=== PATIENT | female | born 1975 | race Caucasian/White ===

== ENCOUNTER 2022-02-20 21:57 | Inpatient (IN) | payer OTHER ==
[~2022-02-20] VITALS: Ht 167.6 cm; Wt 54.4 kg
[2022-02-20 21:57] VITALS: BP 106/62
--- NOTE | 2022-02-20 22:10 | NUR ---
Dr. Sim examining patient at [facility].
[2022-02-20] MEDS ORDERED: NACL 0.9% 1,000 ML IV SCH (22:25)
[2022-02-20 22:44] LABS: BASOPHILS % (AUTO) 0.5 % (0.0-2.0); EOSINOPHILS # (AUTO) 0.3 K/uL (0-0.4); EOSINOPHILS % (AUTO) 3.9 % (0.0-4.0); HEMATOCRIT 31.3 % (36-48); HEMOGLOBIN 10.6 g/dL (12.0-16.0); LYMPHOCYTES # (AUTO) 2.7 K/uL (2.5-16.5); LYMPHOCYTES % (AUTO) 38.6 % (20.5-51.1); MEAN CORPUSCULAR HEMOGLOBIN 29 pg (27-31); MEAN CORPUSCULAR HGB CONC 34 g/dL (33-37); MEAN CORPUSCULAR VOLUME 85.3 fL (80-94); MONOCYTES # (AUTO) 0.5 K/uL (0.8-1.0); MONOCYTES % (AUTO) 7.4 % (1.7-9.3); NEUTROPHILS # (AUTO) 3.4 K/uL (1.8-7.7); NEUTROPHILS % (AUTO) 49.6 % (42.2-75.2); PLATELET COUNT (AUTO) 294 K/uL (140-450); RED BLOOD CELL COUNT(AUTO) 3.67 MIL/uL (4.20-5.40); RED CELL DISTRIBUTION WIDTH 14.5 % (11.6-13.7); WHITE BLOOD COUNT (AUTO) 6.9 K/uL (4.8-10.8)
--- NOTE | 2022-02-20 22:46 | NUR ---
PT MELANIE BLS. TAKEN TO BED 3
--- NOTE | 2022-02-20 22:47 | NUR ---
Patient BIB by KIMBERLY from [facility]. C/O vaginal discharge x today. Per reported, patient had vaginal discharge today with bodyache. A/O,X4, quadriplegia, suprapubic cath, neck pain, pain rate 10/23. PMHx: Quadriplegia, Depression, Insomnia, Osteoarthritis, Hypotension, muscle wasting and atroph, anxiety.
[2022-02-20 23:05] LABS: ALBUMIN 3.7 g/dL (3.4-5.0); ANION GAP 11.6 (8-16); CARBON DIOXIDE 25.7 mmol/L (21-32); CREATININE 0.3 mg/dL (0.6-1.3); POTASSIUM 3.3 mmol/L (3.5-5.1); TOTAL BILIRUBIN 0.2 mg/dL (0.0-1.0)
--- NOTE | 2022-02-20 23:15 | NUR ---
COVID-19 and flu swabs collected and sent to lab.
[2022-02-20 23:19] LABS: APPEARANCE,URINE CLOUDY (CLEAR); BILIRUBIN,URINE NEGATIVE (NEGATIVE); BLOOD, URINE 1+ (NEGATIVE); COLOR,URINE YELLOW (YELLOW); LEUKOCYTE ESTERASE ,URINE TRACE (NEGATIVE); NITRITE, URINE POSITIVE (NEGATIVE); UGLUCOSE NEGATIVE (NEGATIVE)
--- NOTE | 2022-02-20 23:20 | NUR ---
Urine sample collected and sent to lab.
[2022-02-20 23:30] LABS: RBC,URINE 0-5 /HPF (0-5)
[2022-02-20] MEDS ORDERED: BISA-218 RC (23:40)
[2022-02-20] MEDS ORDERED: DOCU-299 PO (23:40)
[2022-02-20] MEDS ORDERED: norco PO (23:40)
[2022-02-20] MEDS ORDERED: FERR325E14 PO (23:40)
[2022-02-20] MEDS ORDERED: LACT500C2 PO (23:40)
[2022-02-20] MEDS ORDERED: MIRABULK PO (23:40)
[2022-02-20] MEDS ORDERED: TRAZ-343 PO (23:40)
[2022-02-20] MEDS ORDERED: CRAN450T5 PO (23:40)
[2022-02-20] MEDS ORDERED: FLO.1 PO (23:40)
[2022-02-20] MEDS ORDERED: [UNRECOGNIZED DRUG - CODE] PO (23:40)
[2022-02-20] MEDS ORDERED: TIZA-313 PO (23:40)
[2022-02-20] MEDS ORDERED: ASCO500T95 PO (23:40)
[2022-02-20] MEDS ORDERED: ONDA-188 PO (23:40)
[2022-02-20] MEDS ORDERED: LACT10SO93 PO (23:40)
[2022-02-20] MEDS ORDERED: ACET-2619 PO (23:40)
--- NOTE | 2022-02-20 23:40 | NUR ---
Med- Rec reviewed.
[2022-02-21] MEDS ORDERED: ONDANSETRON 4 MG/2 ML VIAL IVP ONE (00:20)
[2022-02-21] MEDS ORDERED: MORPHINE SULFATE 4 MG/ML SYR IVP ONE (00:20)
--- NOTE | 2022-02-21 00:20 | NUR ---
Pelvic exam performed by Dr. Gamez with SVETLANA Isbell and SVETLANA Solares at bedside for entire examination. Patient tolerated procedure well. Patient assisted to position of comfort after examination.
--- NOTE | 2022-02-21 01:22 | NUR ---
Given apple juice as request.
--- NOTE | 2022-02-21 02:03 | NUR ---
Patient appears to be resting comfortably in bed. Respirations even and unlabored.
--- NOTE | 2022-02-21 03:36 | NUR ---
Dr. Sim examining patient.
[2022-02-21] MEDS ORDERED: NACL 0.9% 1,000 ML IV SCH (03:50)
[2022-02-21] MEDS ORDERED: MEROPENEM 1,000 MG in NACL 0.9% 50 ML IV ONE (03:50)
[2022-02-21] MEDS ORDERED: metroNIDAZOLE 250 MG TAB PO ONE (03:50)
[2022-02-21] MEDS ORDERED: NACL 0.9% 500 ML IV ONE (03:55)
--- NOTE | 2022-02-21 04:06 | NUR ---
Removal supra pubic cath and re-placed new one (18F) by Dr. Sim with sterile technique and SVETLANA Isbell bedside.
[2022-02-21] MEDS ORDERED: metroNIDAZOLE 500 MG TAB ONE (04:13)
[2022-02-21] MEDS ORDERED: MEROPENEM 1,000 MG VIAL IV ONE (04:14)
--- NOTE | 2022-02-21 06:10 | NUR ---
Patient appears to be resting comfortably in bed. Respirations even and unlabored.
--- NOTE | 2022-02-21 08:38 | NUR ---
ASSUMED PATIENT CARE AAOX4 SPEECH CLEAR AND COHERENT, QUADRIPLEGIC, ON POLISHER APPRENTICE, C/O ACHING PAIN WILL CONTINUE TO MONITOR.
[2022-02-21] MEDS ORDERED: MORPHINE SULFATE 2 MG/ML SYR ONE (09:02)
--- NOTE | 2022-02-21 09:06 | NUR ---
PATIENT HAS BEEN SCREENED AND CATEGORIZED LOW NUTRITION RISK. PATIENT WILL BE SEEN WITHIN 7 DAYS OF ADMISSION. 02/28/22 REVIEWED BY ANU OCNST[address] RD
[2022-02-21] MEDS: ENOXAPARIN 40 MG/0.4 ML SYR SUBQ SCH (09:08)
[2022-02-21] MEDS: MORPHINE SULFATE 4 MG/ML SYR IVP PRN ×2 (09:10→13:20)
--- NOTE | 2022-02-21 09:30 | NUR ---
PATIENT IS BEING FED.
--- NOTE | 2022-02-21 10:00 | NUR ---
ASSISTED WITH REPOSITIONING.
--- NOTE | 2022-02-21 11:46 | NUR ---
PATIENT EYE CLOSE IS RESTING/ SLEEPING, ON DYNAMIC ETCHING PROCESSOR, WILL CONTINUE TO MONITOR.
[2022-02-21] MEDS ORDERED: MEROPENEM 500 MG in NACL 0.9% 50 ML IV SCH (13:00)
--- NOTE | 2022-02-21 13:00 | NUR ---
PATIENT ASSISTED WITH LUNCH, TOLERATED WELL.
[2022-02-21] MEDS: MEROPENEM 1,000 MG in NACL 0.9% 50 ML IV SCH ×2 (13:53→21:30)
--- NOTE | 2022-02-21 16:00 | NUR ---
ADMITTING PHYSICIAN AT BEDSIDE.
[2022-02-21] MEDS: HYDROcodone/APAP 5/325 MG 1 TAB TAB PO PRN (16:42)
--- NOTE | 2022-02-21 16:43 | NUR ---
PATIENT C/O HEADACHE 07/23 MEDICATE WITH NORCO WILL CONTINUE TO MON ITOR.
--- NOTE | 2022-02-21 20:12 | NUR ---
PT IN BED RESTING IN BED WITH HOB ELEVATED. PT ON TENNIS INSTRUCTOR. PT IS ADMITED AND IS HOLDING PENDING BED AVAIL. A&OX4. PT IS A QUADRIPLAIC. SUPRAPUBIC CATH IN PLACE. SKIN WARM AND DRY. BED AT LOWEST POSITION LOCKED IN PLACE. BED RAILS UP X2
--- NOTE | 2022-02-21 21:10 | NUR ---
Patient will be admitted to care of DR REID. Admited to TELE. Will go to room 105B. Belongings list completed. Report to ANGIE MOTA.
--- NOTE | 2022-02-21 21:10 | NUR ---
RECEIVED PT FROM ED VIA GURNEY, ADMITTED TO MST UNIT. PT IS AWAKE, ALERT AND VERBALLY RESPONSIVE. PT WITH CHIEF COMPLAINTS OF GENERAL WEAKNESS AND UTI. DIAGNOSIS OF UTI, PARAPLEGIA, ANEMIA. NON AMBULATORY. IV SALINE LOCK IS ON LEFT HAND INTACT AND PATENT. PT IS WITH REGULAR DIET AND ABLE TO SWALLOW FOOD WITH NO PROBLEM. PT HAS SUPRA PUBIC CATHETER. PT IS ON STANDARD ISOLATION.
--- NOTE | 2022-02-21 21:43 | NUR ---
The patient's care was reviewed and supervised by Carlyn Aguilar RN.
[2022-02-21] MEDS: metroNIDAZOLE 250 MG TAB PO SCH (22:00)
[2022-02-22] MEDS: MORPHINE SULFATE 4 MG/ML SYR IVP PRN ×6 (00:09→21:54)
--- NOTE | 2022-02-22 00:09 | NUR ---
PT COMPLAINTS OF GENERAL BODY PAIN 08/22, PAIN MEDICATION MORPHINE ADMINISTERED ORDER. PT TOLERATES WELL.
[2022-02-22] MEDS ORDERED: MEROPENEM 1,000 MG VIAL IV ONE ×2 (00:31→06:02)
[2022-02-22] MEDS: MEROPENEM 1,000 MG in NACL 0.9% 50 ML IV SCH (05:45)
--- NOTE | 2022-02-22 06:10 | NUR ---
PT COMPLAINTS OF GENERAL BODY PAIN 09/22, PAIN MEDICATION MORPHINE ADMINISTERED ORDER.
--- NOTE | 2022-02-22 07:25 | NUR ---
ASSUMED CONTINUITY OF CARE. NO SIGNS AND SYMPTOMS OF ACUTE DISTRESS NOTED. INITIAL ASSESSMENT DONE. FALL PRECAUTION APPLIED. CALL LIGHT WITHIN REACH.
[2022-02-22 07:27] LABS: BASOPHILS % (AUTO) 0.7 % (0.0-2.0); EOSINOPHILS # (AUTO) 0.4 K/uL (0-0.4); EOSINOPHILS % (AUTO) 5.4 % (0.0-4.0); HEMATOCRIT 32.1 % (36-48); HEMOGLOBIN 11.2 g/dL (12.0-16.0); MEAN CORPUSCULAR HEMOGLOBIN 29 pg (27-31); MEAN CORPUSCULAR HGB CONC 35 g/dL (33-37); MEAN CORPUSCULAR VOLUME 83.4 fL (80-94); MONOCYTES # (AUTO) 0.4 K/uL (0.8-1.0); MONOCYTES % (AUTO) 6.6 % (1.7-9.3); NEUTROPHILS # (AUTO) 3.7 K/uL (1.8-7.7); NEUTROPHILS % (AUTO) 56.3 % (42.2-75.2); PLATELET COUNT (AUTO) 291 K/uL (140-450); RED BLOOD CELL COUNT(AUTO) 3.85 MIL/uL (4.20-5.40); RED CELL DISTRIBUTION WIDTH 14.1 % (11.6-13.7); WHITE BLOOD COUNT (AUTO) 6.5 K/uL (4.8-10.8)
[2022-02-22 07:45] LABS: ALBUMIN 3.7 g/dL (3.4-5.0); ANION GAP 11.7 (8-16); CARBON DIOXIDE 29.1 mmol/L (21-32); CREATININE 0.4 mg/dL (0.6-1.3); MAGNESIUM 1.7 mg/dL (1.8-2.4); POTASSIUM 3.8 mmol/L (3.5-5.1); TOTAL BILIRUBIN 0.3 mg/dL (0.0-1.0)
[2022-02-22 08:00] VITALS: BP 127/77
--- NOTE | 2022-02-22 08:00 | NUR ---
Patient's Plan of Care was discussed and reviewed with SORTING MACHINE OPERATOR:
--- NOTE | 2022-02-22 08:20 | NUR ---
PAGED DR. LAMAS REGARDING MAG 1.7. INFORMED CHARGE NURSE -KILLIAN.
[2022-02-22] MEDS ORDERED: MAG SULF 2000 MG/WATER PREMIX 50 ML IV PRN (08:50)
[2022-02-22] MEDS: metroNIDAZOLE 250 MG TAB PO SCH ×2 (09:00→21:32)
[2022-02-22] MEDS: ENOXAPARIN 40 MG/0.4 ML SYR SUBQ SCH (09:04)
[2022-02-22] MEDS: ONDANSETRON 4 MG/2 ML VIAL IVP PRN (11:35)
[2022-02-22 12:00] VITALS: BP 128/73
[2022-02-22] MEDS: MEROPENEM 1,000 MG in NACL 0.9% 100 ML IV SCH ×2 (12:30→21:33)
[2022-02-22 16:00] VITALS: BP 130/71
--- NOTE | 2022-02-22 18:36 | NUR ---
THE LAST NOTE GIVEN MS IV 2MG .5 WITH IN TWO TIMES, [id number]
--- NOTE | 2022-02-22 19:29 | NUR ---
REPORT GIVEN TO ANGIE AN. IN STABLE CONDITION.
--- NOTE | 2022-02-22 21:30 | NUR ---
PT COMPLAINTS OF GENERAL BODY PAIN 09/22, PAIN MEDICATION MORPHINE ADMINISTERED ORDER.
--- NOTE | 2022-02-22 21:54 | NUR ---
CORRECTION OF TIME FOR PAIN MEDICATION ADMINISTRATION. MORPHINE 2 MG ADMINISTERED AT 2154 INSTEAD.
[2022-02-22 22:43] VITALS: BP 114/71
--- NOTE | 2022-02-22 22:54 | NUR ---
REASSESSMENT FOR PAIN MEDICATION MORPHINE, PT IS ASLEEP WELL. NO SOB OR DISTRESS.
[2022-02-23] MEDS: MORPHINE SULFATE 4 MG/ML SYR IVP PRN ×3 (02:06→16:47)
--- NOTE | 2022-02-23 02:08 | NUR ---
PT COMPLAINTS OF GENERAL BODY PAIN 09/22. PAIN MEDICATION MORPHINE ADMINISTERED ORDER.
--- NOTE | 2022-02-23 03:08 | NUR ---
PT IS SLEEPING. NO FACIAL GRIMACING. NO SOB OR DISTRESS.
[2022-02-23] MEDS: MEROPENEM 1,000 MG in NACL 0.9% 100 ML IV SCH ×2 (05:44→12:19)
[2022-02-23 06:43] VITALS: BP 115/64
--- NOTE | 2022-02-23 07:10 | NUR ---
ASSUMED CONTINUITY OF CARE. IVF INFUSING WELL. INITIAL ASSESSMENT DONE. FALL PRECAUTION APPLIED. EXPLAINED PAIN MANAGEMENT. CALL LIGHT WITHIN REACH.
[2022-02-23 07:20] LABS: ANION GAP 10.1 (8-16); CREATININE 0.4 mg/dL (0.6-1.3); MAGNESIUM 2.2 mg/dL (1.8-2.4); POTASSIUM 4.1 mmol/L (3.5-5.1); TOTAL BILIRUBIN 0.3 mg/dL (0.0-1.0)
[2022-02-23 07:34] LABS: BASOPHILS % (AUTO) 0.6 % (0.0-2.0); EOSINOPHILS # (AUTO) 0.3 K/uL (0-0.4); EOSINOPHILS % (AUTO) 4.2 % (0.0-4.0); HEMATOCRIT 35.9 % (36-48); HEMOGLOBIN 12.2 g/dL (12.0-16.0); LYMPHOCYTES # (AUTO) 2.4 K/uL (2.5-16.5); LYMPHOCYTES % (AUTO) 36.1 % (20.5-51.1); MEAN CORPUSCULAR HEMOGLOBIN 29 pg (27-31); MEAN CORPUSCULAR HGB CONC 34 g/dL (33-37); MEAN CORPUSCULAR VOLUME 84.4 fL (80-94); MONOCYTES # (AUTO) 0.4 K/uL (0.8-1.0); NEUTROPHILS # (AUTO) 3.5 K/uL (1.8-7.7); NEUTROPHILS % (AUTO) 53.1 % (42.2-75.2); PLATELET COUNT (AUTO) 301 K/uL (140-450); RED BLOOD CELL COUNT(AUTO) 4.26 MIL/uL (4.20-5.40); RED CELL DISTRIBUTION WIDTH 14.4 % (11.6-13.7); WHITE BLOOD COUNT (AUTO) 6.5 K/uL (4.8-10.8)
[2022-02-23 08:00] VITALS: BP_SYST 132; BP_SYST 134; BP_DIAS 80
--- NOTE | 2022-02-23 08:49 | NUR ---
DC PLANNING LATE ENTRY PT SEEN AT 1430 ON 02/22/22 YAMIL MET WITH PT AT BEDSIDE TO COMPLETE ASSESSMENT. PT ALERT AND ORIENTED AND ABLE TO PROVIDE ALL HER OWN INFORMATION. PT REPORTS BEING IN HALFWAY CARE WITH [facility], ADMISSION DATE; . PT IDENTIFIED NIMCO WHITEHEAD, DAUGHTER, AND ALLISON GARCIA, MOM, EMERGENCY CONTACTS. PT UNSURE IF SHE HAS AD IN PLACE AND ACCEPTED AD OFFERED BY YAMIL. PT REPORTS BEING FOLLOWED BY DR. DOUGLAS AT FACILITY. PT REPORTS MEDICATION COMPLIANCE AND REPORTS MEDICATION IS ADMINISTERED BY FACILITY, WHEN NEEDED. PT REPORTS BEING TOTAL CARE AT FACILITY AND REPORTS UTILIZING WC, TOLERATED. PT REQUIRES ASSISTANCE WITH ALL ADL'S WHICH [facility] STAFF AIDS WITH. PT DENIES MH HX. 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 PT REPORTS FAMILY IS ACTIVE IN CARE. PT REPORTS DC PLAN IS TO RETURN TO [facility], WHEN MEDICALLY STABLE. YAMIL INQUIRED ON RESOURCES NEEDED, PT DECLINED. Addendum: 02/23/22 at 0851 by Martha JARAMILLO Amended: Links added.
[2022-02-23] MEDS: metroNIDAZOLE 250 MG TAB PO SCH ×2 (09:00→20:15)
[2022-02-23] MEDS: ENOXAPARIN 40 MG/0.4 ML SYR SUBQ SCH (09:01)
[2022-02-23 16:00] VITALS: BP 116/74
[2022-02-23] MEDS ORDERED: AMIKACIN PER PHARMACY MC PRN (17:25)
[2022-02-23] MEDS ORDERED: DEXTROSE 5% IV SCH (18:00)
[2022-02-23] MEDS ORDERED: AMIKACIN IV SCH (18:00)
--- NOTE | 2022-02-23 19:15 | NUR ---
ENDORSED PATIENT TO NIGHT NURSE TRUDY FOR CONTINUITY OF CARE. ENDORSED 1ST DOSE OF AMIKACIN IV. IN STABLE CONDITION.
--- NOTE | 2022-02-23 19:16 | NUR ---
RECEIVED PT FROM MORNING SHIFT NURSE. PT IS AOX4, AND BEDBOUND. PT IS ON ROOM AIR AND ON REGULAR DIET. PT HAS IV ON LEFT HAND GAUGE 24 RUNNING WITH NS AT TKO. PT HAS SUPRAPUBIC CATHETER. PT SKIN IS INTACT. NO COMPLAIN OF PAIN AT THIS TIME. NO S/S OF RESPIRATORY DISTRESS NOTED. ALL SAFETY MEASURES IMPLEMENTED. BED IN LOW POSITION, BED WHEELS ON LOCKED AND CALL LIGHT WITHIN REACH.
--- NOTE | 2022-02-23 20:15 | NUR ---
SCHEDULED AND PRESCRIBED MEDICATION WAS GIVEN TO PT PER MD ORDER. ALL SAFETY MEASURES IMPLEMENTED. BED IN LOW POSITION, BED WHEELS ON LOCKED AND CALL LIGHT WITHIN REACH.
--- NOTE | 2022-02-23 22:00 | NUR ---
PT IS WATCHING MOVIE TO HER PHONE. NO COMPLAIN OF PAIN. NO S/S OF RESPIRATORY DISTRESS NOTED. ALL SAFETY MEASURES IMPLEMENTED. BED IN LOW POSITION, BED WHEELS ON LOCK AND CALL LIGHT WITHIN REACH.
[2022-02-23 22:43] VITALS: BP 102/61
--- NOTE | 2022-02-24 00:24 | NUR ---
NOTIFIED DR. HAGAN REGARDING THE PT'S AMIKACIN RANDOM LEVEL DOESN'T RUN TO [facility] FOR INCURABLES BUT THE LAB WILL SEND IT TO [facility].
[2022-02-24] MEDS: ONDANSETRON 4 MG/2 ML VIAL IVP PRN (03:13)
[2022-02-24] MEDS: MORPHINE SULFATE 4 MG/ML SYR IVP PRN ×2 (03:13→09:58)
--- NOTE | 2022-02-24 03:13 | NUR ---
PRN PAIN MEDICATION AND ZOFRAN WAS GIVEN TO PT DUE TO GEN. PAIN WITH PAIN SCALE OF 6/10. ALL SAFETY MEASURES IMPLEMENTED. BED IN LOW POSITION, BED WHEELS ON LOCKED AND CALL LIGHT WITHIN REACH.
[2022-02-24 03:24] LABS: BASOPHILS % (AUTO) 0.7 % (0.0-2.0); EOSINOPHILS # (AUTO) 0.3 K/uL (0-0.4); EOSINOPHILS % (AUTO) 4.9 % (0.0-4.0); HEMATOCRIT 33.4 % (36-48); HEMOGLOBIN 11.7 g/dL (12.0-16.0); LYMPHOCYTES # (AUTO) 2.4 K/uL (2.5-16.5); LYMPHOCYTES % (AUTO) 38.4 % (20.5-51.1); MEAN CORPUSCULAR HEMOGLOBIN 29 pg (27-31); MEAN CORPUSCULAR HGB CONC 35 g/dL (33-37); MEAN CORPUSCULAR VOLUME 83.7 fL (80-94); MONOCYTES # (AUTO) 0.5 K/uL (0.8-1.0); MONOCYTES % (AUTO) 7.2 % (1.7-9.3); NEUTROPHILS # (AUTO) 3.1 K/uL (1.8-7.7); NEUTROPHILS % (AUTO) 48.8 % (42.2-75.2); PLATELET COUNT (AUTO) 291 K/uL (140-450); RED CELL DISTRIBUTION WIDTH 14.6 % (11.6-13.7); WHITE BLOOD COUNT (AUTO) 6.4 K/uL (4.8-10.8)
[2022-02-24 03:32] LABS: ALBUMIN 3.8 g/dL (3.4-5.0); ANION GAP 9.7 (8-16); CARBON DIOXIDE 31.6 mmol/L (21-32); CREATININE 0.4 mg/dL (0.6-1.3); MAGNESIUM 1.8 mg/dL (1.8-2.4); POTASSIUM 4.3 mmol/L (3.5-5.1); TOTAL BILIRUBIN 0.4 mg/dL (0.0-1.0)
[2022-02-24 06:46] VITALS: BP 116/78
--- NOTE | 2022-02-24 07:29 | NUR ---
PT IS STABLE. ENDORSED PT TO MORNING SHIFT NURSE FOR CONTINUITY OF CARE.
[2022-02-24 08:00] VITALS: BP 104/64
[2022-02-24] MEDS: metroNIDAZOLE 250 MG TAB PO SCH ×2 (08:56→21:00)
[2022-02-24] MEDS: ENOXAPARIN 40 MG/0.4 ML SYR SUBQ SCH (08:56)
[2022-02-24] MEDS: MORPHINE SULFATE 2 MG/ML SYR IVP PRN (14:36)
[2022-02-24] MEDS: AMIKACIN 700 MG in DEXTROSE 5% 100 ML IV SCH (15:31)
[2022-02-24 16:00] VITALS: BP 122/50
--- NOTE | 2022-02-24 18:45 | NUR ---
ALL NEEDS HAVE BEEN MET THROUGHOUT THE SHIFT. ALL SAFETY MEASURES IN PLACE. CALL LIGHT WITHIN REACH. WILL CONTINUE TO MONITOR.
--- NOTE | 2022-02-24 19:30 | NUR ---
HAND-OFF REPORT RECEIVED FROM SHAKIRA MOTA FOR CONTINUITY OF CARE OF PT. ENDORSED TO CALL MD FOR MEDS FOR BOWELS. NO BM IN 6 DAYS. PT RECEIVED RESTING QUIETLY IN BED.
[2022-02-24 20:00] VITALS: BP 74/49
[2022-02-24 20:15] VITALS: BP 128/85
--- NOTE | 2022-02-24 20:45 | NUR ---
HYPOTENSIVE 76/48. HR 92. PT SYMPTOMATIC. "I FEEL BAD". NS OPENED WIDE. 02 2L/NC PLACED.
--- NOTE | 2022-02-24 20:50 | NUR ---
VS 117/76 HR 68, I'M FEELING BETTER. 128/85 HR 62. I FEEL BETTER.
--- NOTE | 2022-02-24 21:15 | NUR ---
LUIS MALONEY MD NOTIFIED PT STATES TAKE MIDODRINE AT FACILITY BUT MEDICINE NOT FOUND ON MED RECONCILIATION FORM. ORDER RECEIVED FOR MIDODRINE 10 MG TID.
[2022-02-24] MEDS ORDERED: MIDODRINE 5 MG TAB PO SCH (21:16)
[2022-02-25] VITALS (11 sets, daily range): BP systolic 104–177; BP diastolic 59–102
--- NOTE | 2022-02-25 | NUR ---
RESTING WELL. NO C/O.
--- NOTE | 2022-02-25 | NUR ---
MIDODRINE HELD. B/P 129/101 HR 98 SAT 98% ON 2L/NC.
--- NOTE | 2022-02-25 04:00 | NUR ---
PT CONTINUES RESTING WELL.
[2022-02-25 06:58] LABS: BASOPHILS # (AUTO) 0.1 K/uL (0.00-0.22); BASOPHILS % (AUTO) 0.9 % (0.0-2.0); EOSINOPHILS # (AUTO) 0.2 K/uL (0-0.4); EOSINOPHILS % (AUTO) 2.9 % (0.0-4.0); HEMATOCRIT 36.5 % (36-48); HEMOGLOBIN 12.4 g/dL (12.0-16.0); LYMPHOCYTES # (AUTO) 2.1 K/uL (2.5-16.5); LYMPHOCYTES % (AUTO) 25.8 % (20.5-51.1); MEAN CORPUSCULAR HEMOGLOBIN 29 pg (27-31); MEAN CORPUSCULAR HGB CONC 34 g/dL (33-37); MONOCYTES # (AUTO) 0.3 K/uL (0.8-1.0); MONOCYTES % (AUTO) 3.9 % (1.7-9.3); NEUTROPHILS # (AUTO) 5.3 K/uL (1.8-7.7); NEUTROPHILS % (AUTO) 66.5 % (42.2-75.2); PLATELET COUNT (AUTO) 327 K/uL (140-450); RED BLOOD CELL COUNT(AUTO) 4.35 MIL/uL (4.20-5.40); RED CELL DISTRIBUTION WIDTH 14.2 % (11.6-13.7)
[2022-02-25] MEDS ORDERED: MIDODRINE 5 MG TAB PO SCH (07:00)
[2022-02-25] MEDS: HYDROcodone/APAP 5/325 MG 1 TAB TAB PO PRN ×2 (07:15→07:36)
[2022-02-25 07:28] LABS: ALBUMIN 4.1 g/dL (3.4-5.0); ANION GAP 13.5 (8-16); CARBON DIOXIDE 28.7 mmol/L (21-32); CREATININE 0.4 mg/dL (0.6-1.3); MAGNESIUM 1.8 mg/dL (1.8-2.4); POTASSIUM 4.2 mmol/L (3.5-5.1); TOTAL BILIRUBIN 0.4 mg/dL (0.0-1.0)
--- NOTE | 2022-02-25 07:30 | NUR ---
PT HAS BEEN ENDORSED BY DIMENSIONAL ENGINEER NURSE, ALL SAFETY MEASURES IN PLACE. PT ALERT AND ORIENTED, ABLE TO COMMUNICATE. ON 2L NC CHEST RISING AND FALLING EVEN AND UNLABORED. ALL DIMENSIONAL ENGINEER EVENTS ENDORSED. REPORT OF DECREASED BLOOD PRESSURE DURING DIMENSIONAL ENGINEER, NEW ORDER FOR MIDODRINE TID, 0700 DOSE ADMINISTERED BY DIMENSIONAL ENGINEER. WILL CONTINUE TO MONITOR.
[2022-02-25] MEDS: MORPHINE SULFATE 2 MG/ML SYR IVP PRN ×4 (07:33→22:36)
--- NOTE | 2022-02-25 07:33 | NUR ---
PT REQUESTING MORPHINE INSTEAD OF NORCO FOR "BODY ACHE AND NECK PAIN". MORPHINE 2MG IV PUSH GIVEN. REPORTED TO A.M. NURSE MORPHINE GIVEN AND NORCO REFUSED AND RETURNED TO [facility]. PAIN LEVEL 7/10. RELINQUISHED CARE OF PT AT THIS TIME.
--- NOTE | 2022-02-25 07:33 | NUR ---
HAND-OFF REPORT TO RETURNING NURSE SHAKIRA MOTA. UPDATED CHANGES. HYPOTENSIVE EPISODE X1. RESPONDED WELL TO BOLUS IV FLUIDS AND O2 PER 2L/NC. THIS A.M VOICED COMPLAINTS BODY ACHE AND NECK PAIN. REFUSED NORCO DESIRED MORPHINE 2 MG INSTEAD.
--- NOTE | 2022-02-25 08:57 | NUR ---
PT. WITH LOW RG SCALE AT MODERATE TO HIGH RISK, CONTINUE TO FOLLOW PRESSURE INJURY PREVENTION INTERVENTIONS. -POSITIONING: TURN AND REPOSITION PATIENT Q 2H OR SOONER USE PILLOWS TO KEEP BONY PROMINENCES FROM DIRECT CONTACT WITH SURFACES USE REPOSITIONING WEDGES TO PROVIDE 30-DEGREE ANGLE FOR SIDE LYING POSITIONS OFFLOADING OR FOAM DRESSING TO ALL TUBING TO PREVENT MEDICAL DEVICES RELATED PRESSURE INJURY -RE-EVALUATING AND MANAGING INCONTINENCE MONITOR SKIN CONDITION DURING POSITION CHANGE DO NOT MASSAGE REDNESS, BONY PROMINENCES FREQUENT RENAE-CARE AND PROVIDE BARRIER CREAMS PRN IF SOILING MOISTURE CONTROL BY OFFER BED MCMULLEN/URINAL /ABSORBENT PAD TO WICK AND HOLD MOISTURE KEEP SKIN DRY AND PROTECT FROM FRICTION -MANAGE FRICTION/SHEAR/MOBILITY KEEP HOB AT THE LOWEST LEVEL OF ELEVATION NO MORE THAN 30 DEGREE UNLESS OTHERWISE CONTRAINDICATED USE LIFT SHEET OR TRANSFER DEVICE TO MOVE PATIENT AND PREVENT LATERAL SHEER. PROTECT HEELS, ELBOWS BONY PROMINENCES WITH SKIN BERRIES OR FOAM DRESSING IF EXPOSED TO FRICTION OFFLOAD BILATERAL HEELS BY PLACING PILLOWS UNDER CALVES AT ALL TIMES, UNLESS OTHERWISE CONTRAINDICATED -PRESSURE REDISTRIBUTION SURFACE THERAPY FOREST ISOFLEX MATTRESS -NUTRITION: PLEASE FOLLOW RD RECOMMENDATIONS AND OFFER NUTRITION SUPPLEMENTS IF ORDERED. PLEASE CONTACT WOUND CARE NURSE FOR ANY QUESTION AND CHANGE OF WOUND CONDITION.
[2022-02-25] MEDS: metroNIDAZOLE 250 MG TAB PO SCH ×2 (09:00→21:37)
[2022-02-25] MEDS ORDERED: NACL 0.9% 500 ML IV SCH (09:10)
[2022-02-25] MEDS: ENOXAPARIN 40 MG/0.4 ML SYR SUBQ SCH (09:23)
[2022-02-25] MEDS ORDERED: ALBUMIN HUMAN 25% 100 ML IV SCH (09:30)
[2022-02-25] MEDS ORDERED: SODIUM PHOSPHATE 118 ML ENEM RC SCH (10:00)
--- NOTE | 2022-02-25 10:00 | NUR ---
AT ROUGHLY 0745, RAPID RESPONSE CALLED FOR 58/36 BLOOD PRESSURE. CONNECT TO TELE. 250 BOLUS ADMINISTERED AND PLACED IN [place]. AT ROUGHLY 0832, BLOOD PRESSURE INCREASED TO 118/71. AT 0924, A SEIZURE WAS WITNESSED FOR 45 SECONDS. PT REMAINED INJURY FREE. REASSESSMENT OF VITAL SIGNS 101/81 HEART RATE 109 O2 SAT AT 98%. ORDERED ALBUMIN WAS STARTED PER MD ORDER. PT UNABLE TO RESPOND TO QUESTIONS. MD ORDERED ICU TRANSFER. AT ROUGHLY 0945, REPORT WAS GIVEN. PATIENT ABLE TO RESPOND AND ANSWER QUESTIONS AT THIS TIME.
--- NOTE | 2022-02-25 10:13 | NUR ---
PT HAS BEEN TRANSFERRED TO ICU BED 5, 3L NC, SUPRAPUBIC CATH. ALL EVENTS ENDORSED, ALL QUESTIONS ANSWERED. ALLISON MOTHER CALLED WITH AN UPDATE AND ROOM NUMBER. ALL QUESTIONS ANSWERED.
--- NOTE | 2022-02-25 10:15 | NUR ---
RECEIVED PT FROM TELEMETRY, A/OX4, ALERT AND ABLE TO MAKE NEEDS KNOWN. FOLLOWS COMMANDS. 2L NC. SR ON MONITOR, 24G IV TO L HAND INFUSING ALBUMIN AT 50 ML/HR. SUPRAPUBIC CATHETER IN PLACE. NOTABLE WEAKNESS TO BLE. ABLE TO MOVE UPPER EXTREMITIES WITHOUT GOOD USE OF HANDS. CONTACT PRECAUTION. CALL LIGHT WITHIN REACH. BED LOCKED AND IN LOWEST POSITION.
--- NOTE | 2022-02-25 12:05 | NUR ---
PICC NURSE AT BEDSIDE, CONFIRMED PICC PLACEMENT WITH CXR, OK TO USE PICC.
[2022-02-25] MEDS: HYDROCORTISONE NA SUCC 100 MG/2 ML VIAL IV SCH ×2 (12:34→21:36)
[2022-02-25] MEDS: ONDANSETRON 4 MG/2 ML VIAL IVP PRN ×2 (12:35→17:58)
[2022-02-25] MEDS: MIDODRINE 5 MG TAB PO SCH ×2 (12:35→19:07)
[2022-02-25] MEDS: ACETAMINOPHEN 325 MG TAB PO PRN (14:12)
[2022-02-25] MEDS: AMIKACIN 700 MG in DEXTROSE 5% 100 ML IV SCH (15:22)
--- NOTE | 2022-02-25 16:53 | NUR ---
SEEN AND EXAMINED BY DR. LAMAS AT BEDSIDE.
--- NOTE | 2022-02-25 18:08 | NUR ---
MOTHER AT BEDSIDE.
--- NOTE | 2022-02-25 19:14 | NUR ---
ENDORSED BEDSIDE REPORT TO JONNY, FIRE LIEUTENANT DISPATCH SUPERVISOR, FOR CONTINUITY OF CARE.
[2022-02-25] MEDS ORDERED: metroNIDAZOLE 500 MG TAB ONE (21:25)
[2022-02-25] MEDS: LACTULOSE 20 GM/30 ML UDC PO SCH (21:36)
[2022-02-26] VITALS (18 sets, daily range): BP systolic 73–182; BP diastolic 49–106
[2022-02-26] MEDS ORDERED: LORazepam 2 MG/ML VIAL ONE (04:31)
--- NOTE | 2022-02-26 04:54 | NUR ---
0437 CALLED TO DO A STAT EKG. RESULTS GIVEN TO SVETLANA
[2022-02-26] MEDS ORDERED: NACL 0.9% 1,000 ML IV SCH (05:35)
[2022-02-26] MEDS ORDERED: levETIRAcetam 100 MG/ML VIAL IV ONE (05:36)
[2022-02-26] MEDS: levETIRAcetam 1,000 MG in NACL 0.9% 100 ML IV SCH ×2 (05:44→20:30)
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
[2022-02-26] MEDS ORDERED: metroNIDAZOLE 500 MG/NS PREMIX 100 ML IV ONE (05:54)
[2022-02-26 06:07] LABS: BASOPHILS % (AUTO) 0.4 % (0.0-2.0); EOSINOPHILS % (AUTO) 0.2 % (0.0-4.0); HEMATOCRIT 31.6 % (36-48); HEMOGLOBIN 10.7 g/dL (12.0-16.0); LYMPHOCYTES # (AUTO) 1.6 K/uL (2.5-16.5); MEAN CORPUSCULAR HEMOGLOBIN 29 pg (27-31); MEAN CORPUSCULAR HGB CONC 34 g/dL (33-37); MEAN CORPUSCULAR VOLUME 84.3 fL (80-94); MONOCYTES # (AUTO) 0.2 K/uL (0.8-1.0); MONOCYTES % (AUTO) 3.1 % (1.7-9.3); NEUTROPHILS # (AUTO) 4.4 K/uL (1.8-7.7); NEUTROPHILS % (AUTO) 71.3 % (42.2-75.2); PLATELET COUNT (AUTO) 313 K/uL (140-450); RED BLOOD CELL COUNT(AUTO) 3.75 MIL/uL (4.20-5.40); WHITE BLOOD COUNT (AUTO) 6.2 K/uL (4.8-10.8)
[2022-02-26 06:55] LABS: ALBUMIN 4.1 g/dL (3.4-5.0); ANION GAP 12.6 (8-16); CARBON DIOXIDE 28.9 mmol/L (21-32); CREATININE 0.3 mg/dL (0.6-1.3); MAGNESIUM 1.8 mg/dL (1.8-2.4); POTASSIUM 3.5 mmol/L (3.5-5.1); TOTAL BILIRUBIN 0.3 mg/dL (0.0-1.0)
[2022-02-26] MEDS: MIDODRINE 5 MG TAB PO SCH ×2 (07:19→13:39)
[2022-02-26] MEDS: ENOXAPARIN 40 MG/0.4 ML SYR SUBQ SCH (09:10)
[2022-02-26] MEDS: LACTULOSE 20 GM/30 ML UDC PO SCH ×2 (09:12→20:29)
[2022-02-26] MEDS: HYDROCORTISONE NA SUCC 100 MG/2 ML VIAL IV SCH (09:12)
[2022-02-26] MEDS: MORPHINE SULFATE 2 MG/ML SYR IVP PRN ×2 (09:37→16:19)
[2022-02-26] MEDS: ONDANSETRON 4 MG/2 ML VIAL IVP PRN ×3 (09:38→18:10)
--- NOTE | 2022-02-26 10:01 | NUR ---
Assumed care of patient. Assessment completed. C/O pain in neck 09/22. Morphine 2mg IV given. C/O Nausea, Zofran 4mg IVP given.Vitals stable at this time. 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 On Kepra scheduled. Repositioned. Perineal care given. C/O Anxiety. Dr. Eller notified, waiting for orders.
--- NOTE | 2022-02-26 10:30 | NUR ---
Ativan 1mg IVP given for anxiety.
[2022-02-26] MEDS: LORazepam 2 MG/ML VIAL IVP PRN ×2 (10:31→20:52)
[2022-02-26] MEDS ORDERED: LORazepam 2 MG/ML VIAL IM/IVP PRN (11:35)
[2022-02-26] MEDS ORDERED: bisacodyL 10 MG SUPP RC PRN (11:35)
--- NOTE | 2022-02-26 12:03 | NUR ---
LOC ASLEEP NO DISTRESS NOTED PATIENT UNABLE TO PARTICIPATE WITH THE INCENTIVE SPIROMETRY THERAPY HEALTH MANAGER TO ATTEMPT AT A LATER TIME WHEN PATIENT AWAKENS
--- NOTE | 2022-02-26 12:30 | NUR ---
CT Head completed as ordered.
[2022-02-26] MEDS ORDERED: POTASSIUM CHLORIDE 10 MEQ TABER PO SCH (13:00)
[2022-02-26] MEDS: AMIKACIN 700 MG in DEXTROSE 5% 100 ML IV SCH (15:20)
[2022-02-26] MEDS ORDERED: hydrALAZINE 20 MG/ML VIAL IVP PRN ×2 (17:45→18:10)
[2022-02-26] MEDS: ACETAMINOPHEN 325 MG TAB PO PRN (18:48)
--- NOTE | 2022-02-26 19:30 | NUR ---
TRANSFER OF CARE FROM DAY SHIFT, REPORT RECEIVED FROM SVETLANA MONZON. PATIENT RECEIVED IN BED, PATIENT IS ASLEEP, BUT EASILY AROUSABLE AND DOES NOT APPEAR TO BE IN DISTRESS. PATIENT IS ON ROOM AIR. PATIENT HAS THE FOLLOWING MEDICATIONS CURRENTLY INFUSING: NORMAL SALINE AT 5 ML/HR CURRENT VITALS AT START OF SHIFT: TEMP=97.3F, HR=64, O2 SAT=96%, AS=055/75, R=35. HAS SUPRAPUBIC CATHETER IN PLACE, WILL CONTINUE TO MONITOR PATIENT
[2022-02-26] MEDS: traZODone 50 MG TAB PO SCH (20:29)
[2022-02-26] MEDS: DOCUSATE SODIUM 100 MG GELCAP PO SCH (20:29)
[2022-02-26] MEDS: FAMOTIDINE 20 MG/2 ML VIAL IV SCH (20:30)
[2022-02-26] MEDS ORDERED: HYDROCORTISONE NA SUCC 100 MG/2 ML VIAL IV SCH (21:00)
[2022-02-26] MEDS ORDERED: tiZANidine 4 MG TAB PO PRN (21:00)
--- NOTE | 2022-02-26 23:30 | NUR ---
PATIENT NOTEED WITH BP 73/38, ASSESSED PATIENT WHO STATES THAT SHE OFTEN BECOMES HYPOTENSIVE WHILE SLEEPING. ADJUSTED BP CUFF AND NEW READING WAS 71/63. CALL PLACED TO FLOORING INSTALLER; SPOKE WITH DR. REA WHO PROVIDED ORDERS FOR MIDODRINE 5MG Q6H WITH ONE DOSE NOW. PATIENT TO CONTINUE FLORINEF. CHECK BP IN 1 HOUR, IF BP DOES NOT RISE, START LEVOPHED IV PER PROTOCOL; WILL CONTINUE TO MONITOR PATIENT
[2022-02-27] VITALS (12 sets, daily range): BP systolic 83–154; BP diastolic 50–89
--- NOTE | 2022-02-27 | NUR ---
ADMINISTERED MIDODRINE PER MD ORDERS, CURRENT BP = 83/50. WILL RECHECK IN 1 HR
[2022-02-27] MEDS: MIDODRINE 5 MG TAB PO SCH ×6 (00:01→23:59)
[2022-02-27] MEDS ORDERED: NOREPINEPHRINE 8 MG in DEXTROSE 5% 250 ML IV PRN (00:45)
--- NOTE | 2022-02-27 01:10 | NUR ---
FOLLOW UP ON BLOOD PRESSURE, CURRENT VALUE = 100/60. WILL CONTINUE TO MONITOR PATIENT AND START LEVOPHED IF BP DROPS BACK INTO THE 80'S
[2022-02-27] MEDS: MORPHINE SULFATE 2 MG/ML SYR IVP PRN ×3 (03:11→17:01)
[2022-02-27] MEDS: LORazepam 2 MG/ML VIAL IVP PRN ×4 (03:54→23:59)
--- NOTE | 2022-02-27 04:15 | NUR ---
PATIENT DECLINED AM CARE
[2022-02-27] MEDS ORDERED: NOREPINEPHRINE 4 MG/4 ML VIAL IV ONE (05:33)
--- NOTE | 2022-02-27 05:46 | NUR ---
PATIENT NOTED WITH LOW BP; 83/53. STARTED LEVOPHED PER MD ORDERS
[2022-02-27 06:09] LABS: BASOPHILS % (AUTO) 0.6 % (0.0-2.0); EOSINOPHILS # (AUTO) 0.1 K/uL (0-0.4); HEMATOCRIT 29.6 % (36-48); HEMOGLOBIN 10.3 g/dL (12.0-16.0); LYMPHOCYTES # (AUTO) 3.6 K/uL (2.5-16.5); LYMPHOCYTES % (AUTO) 45.3 % (20.5-51.1); MEAN CORPUSCULAR HEMOGLOBIN 29 pg (27-31); MEAN CORPUSCULAR HGB CONC 35 g/dL (33-37); MEAN CORPUSCULAR VOLUME 84.2 fL (80-94); MONOCYTES # (AUTO) 0.6 K/uL (0.8-1.0); MONOCYTES % (AUTO) 7.8 % (1.7-9.3); NEUTROPHILS # (AUTO) 3.6 K/uL (1.8-7.7); NEUTROPHILS % (AUTO) 45.3 % (42.2-75.2); PLATELET COUNT (AUTO) 299 K/uL (140-450); RED BLOOD CELL COUNT(AUTO) 3.52 MIL/uL (4.20-5.40); RED CELL DISTRIBUTION WIDTH 14.3 % (11.6-13.7); WHITE BLOOD COUNT (AUTO) 7.9 K/uL (4.8-10.8)
[2022-02-27 06:31] LABS: ANION GAP 12.3 (8-16); CARBON DIOXIDE 27.9 mmol/L (21-32); CREATININE 0.4 mg/dL (0.6-1.3); POTASSIUM 3.2 mmol/L (3.5-5.1)
[2022-02-27 06:37] LABS: MAGNESIUM 1.8 mg/dL (1.8-2.4); PHOSPHORUS 2.4 mg/dL (2.5-4.9)
--- NOTE | 2022-02-27 07:29 | NUR ---
TRANSFER OF CARE TO DAY SHIFT; REPORT ENDORSED TO SVETLANA BOWSER
--- NOTE | 2022-02-27 08:00 | NUR ---
rECEIVED PT ON BED, AAOX4, DENIES PAIN/DISCOMFORT AT THIS TIME; NOT IN DISTRESS. ASSESSMENT DONE, PARAPLEGIA NOTED. REPOSITIONED TO SIDE, SUPPORTED WITH PILLOWS. MADE WARM AND COMFORTABLE. CALL LIGHT WITHIN REACH. LEVOPHED DRIP TITRATED DOWN TO 1 MCG. CONT TO MONITOR.
[2022-02-27] MEDS: ONDANSETRON 4 MG/2 ML VIAL IVP PRN ×2 (08:41→17:09)
[2022-02-27] MEDS: LACTULOSE 20 GM/30 ML UDC PO SCH ×2 (08:42→20:35)
[2022-02-27] MEDS: FAMOTIDINE 20 MG/2 ML VIAL IV SCH ×2 (08:43→20:38)
[2022-02-27] MEDS: DOCUSATE SODIUM 100 MG GELCAP PO SCH ×2 (08:44→20:38)
[2022-02-27] MEDS: LACTOBACILLUS RHAMNOSUS GG 1 EACH CAP PO SCH (08:55)
[2022-02-27] MEDS: FERROUS SULFATE 325 MG TABEC PO SCH (08:55)
[2022-02-27] MEDS: ENOXAPARIN 40 MG/0.4 ML SYR SUBQ SCH (08:56)
[2022-02-27] MEDS: ASCORBIC ACID 500 MG TAB PO SCH (08:56)
[2022-02-27] MEDS: POLYETHYLENE GLYCOL 17 GM/PKT PO SCH (08:56)
[2022-02-27] MEDS: levETIRAcetam 1,000 MG in NACL 0.9% 100 ML IV SCH ×2 (08:59→20:37)
[2022-02-27] MEDS: FLUDROCORTISONE 0.1 MG TAB PO SCH (08:59)
[2022-02-27] MEDS ORDERED: NON-FORMULARY ITEM (Lactobacillus Acidophilus (Acidophilus) 1 CAP) PO SCH (09:00)
--- NOTE | 2022-02-27 09:30 | NUR ---
EEG GOING ON AT BEDSIDE.
--- NOTE | 2022-02-27 11:03 | NUR ---
MESSAGED DR. LAMAS REGARDING PT TAKING ATIVAN I MG PO Q12 HRS PRN ANXIETY, NOT RECONCILED; SAYS OK TO RECONCILE, ORDER NOTED AND CARRIED OUT.
[2022-02-27] MEDS ORDERED: LORazepam 1 MG TAB PO PRN (11:05)
[2022-02-27] MEDS ORDERED: POTASSIUM CHLORIDE 10 MEQ TABER PO SCH ×2 (11:23→15:00)
--- NOTE | 2022-02-27 13:56 | NUR ---
02/27/22 RD INITIAL ASSESSMENT COMPLETED. PLEASE REFER TO NUTRITION ASSESSMENT UNDER CARE ACTIVITY FOR ESTIMATED NUTRITIONAL NEEDS. 1. CONTINUE REGULAR DIET TOLERATED 2. MONITOR PO INTAKE 3. MONITOR GI SYMPTOMS 3. RD TO FOLLOW-UP 2-3 DAYS, HIGH RISK MAGNO CUI RD
[2022-02-27] MEDS ORDERED: MAG SULF 2000 MG/WATER PREMIX 50 ML IV ONE (15:00)
[2022-02-27] MEDS: AMIKACIN 700 MG in DEXTROSE 5% 100 ML IV SCH (16:15)
[2022-02-27] MEDS ORDERED: SODIUM PHOSPHATE 118 ML ENEM RC PRN (17:45)
--- NOTE | 2022-02-27 19:15 | NUR ---
TRANSFER OF CARE FROM DAY SHIFT, REPORT RECEIVED FROM SVETLANA SERVIN. PATIENT RECEIVED IN BED, PATIENT IS ASLEEP, BUT EASILY AROUSABLE AND DOES NOT APPEAR TO BE IN DISTRESS. PATIENT IS ON ROOM AIR. PATIENT HAS THE FOLLOWING MEDICATIONS CURRENTLY INFUSING: NORMAL SALINE AT 5 ML/HR CURRENT VITALS AT START OF SHIFT: TEMP=97.9F, HR=58, O2 PDB=629%, IH=461/66, R=25. HAS SUPRAPUBIC CATHETER IN PLACE, WILL CONTINUE TO MONITOR PATIENT Addendum: 02/28/22 at 0039 by Sidra Dejesus RN REPORT RECEIVED FROM SVETLANA BOWSER CORRECTED VITALS TEMP = 97.6F, HR = 56, O2 SAT = 96%, BP = 98/58
[2022-02-27] MEDS: traZODone 50 MG TAB PO SCH (20:38)
--- NOTE | 2022-02-27 22:15 | NUR ---
PATIENT LYING IN BED; DOES NOT APPEAR TO BE IN DISTRESS, PATIENT WAS REPOSITIONED AND HAD COVERS ADJUSTED. WILL CONTINUE TO MONITOR PATIENT
[2022-02-28] VITALS (15 sets, daily range): BP systolic 91–162; BP diastolic 57–103
--- NOTE | 2022-02-28 04:56 | NUR ---
MESSAGE SENT TO FOR ORDERS FOR CATH FLOW DUE TO CLOGGED PICC LINE
[2022-02-28 05:49] LABS: BASOPHILS % (AUTO) 0.6 % (0.0-2.0); EOSINOPHILS # (AUTO) 0.2 K/uL (0-0.4); EOSINOPHILS % (AUTO) 3.6 % (0.0-4.0); HEMATOCRIT 29.9 % (36-48); HEMOGLOBIN 10.3 g/dL (12.0-16.0); LYMPHOCYTES # (AUTO) 3.2 K/uL (2.5-16.5); LYMPHOCYTES % (AUTO) 50.5 % (20.5-51.1); MEAN CORPUSCULAR HEMOGLOBIN 29 pg (27-31); MEAN CORPUSCULAR HGB CONC 35 g/dL (33-37); MEAN CORPUSCULAR VOLUME 84.5 fL (80-94); MONOCYTES # (AUTO) 0.4 K/uL (0.8-1.0); MONOCYTES % (AUTO) 6.9 % (1.7-9.3); NEUTROPHILS # (AUTO) 2.4 K/uL (1.8-7.7); NEUTROPHILS % (AUTO) 38.4 % (42.2-75.2); PLATELET COUNT (AUTO) 270 K/uL (140-450); RED BLOOD CELL COUNT(AUTO) 3.53 MIL/uL (4.20-5.40); RED CELL DISTRIBUTION WIDTH 14.1 % (11.6-13.7); WHITE BLOOD COUNT (AUTO) 6.3 K/uL (4.8-10.8)
[2022-02-28] MEDS: MIDODRINE 5 MG TAB PO SCH ×4 (05:53→21:37)
[2022-02-28 06:16] LABS: ANION GAP 11.3 (8-16); CARBON DIOXIDE 28.8 mmol/L (21-32); CREATININE 0.3 mg/dL (0.6-1.3); POTASSIUM 4.1 mmol/L (3.5-5.1)
[2022-02-28 06:31] LABS: MAGNESIUM 1.9 mg/dL (1.8-2.4); PHOSPHORUS 3.4 mg/dL (2.5-4.9)
--- NOTE | 2022-02-28 07:18 | NUR ---
TRANSFER OF CARE TO DAY SHIFT, CARE OF PATIENT ENDORSED TO PEPRAMBO
--- NOTE | 2022-02-28 08:00 | NUR ---
RECEIVED ON BED - DROWSY, EASILY AROUSABLE, DENIES PAIN AT THIS TIME; NOT IN ANY FORM OF DISTRESS. ASSESSMENT DONE. REPOSITIONED TO SIDE, SUPPORTED WITH PILLOWS. NEEDS ATTEDED. KEPT CLEAN AND DRY. CALL LIGHT WITHIN REACH. SR. CONT TO MONITOR.
[2022-02-28] MEDS: LORazepam 2 MG/ML VIAL IVP PRN ×3 (09:30→22:51)
--- NOTE | 2022-02-28 09:30 | NUR ---
FED WITH BREAKFAST, ASPIRATION PRECAUTION OBSERVED, CONSUMED 40% OF MEAL SERVED.
[2022-02-28] MEDS: ONDANSETRON 4 MG/2 ML VIAL IVP PRN ×3 (09:45→22:50)
[2022-02-28] MEDS: FAMOTIDINE 20 MG/2 ML VIAL IV SCH ×2 (09:54→21:44)
[2022-02-28] MEDS: DOCUSATE SODIUM 100 MG GELCAP PO SCH ×2 (09:54→21:45)
[2022-02-28] MEDS: ASCORBIC ACID 500 MG TAB PO SCH (09:54)
[2022-02-28] MEDS: FERROUS SULFATE 325 MG TABEC PO SCH (09:55)
[2022-02-28] MEDS: LACTULOSE 20 GM/30 ML UDC PO SCH ×2 (09:55→21:42)
[2022-02-28] MEDS: FLUDROCORTISONE 0.1 MG TAB PO SCH (09:55)
[2022-02-28] MEDS: LACTOBACILLUS RHAMNOSUS GG 1 EACH CAP PO SCH (09:55)
[2022-02-28] MEDS: levETIRAcetam 1,000 MG in NACL 0.9% 100 ML IV SCH ×2 (09:56→21:44)
[2022-02-28] MEDS: POLYETHYLENE GLYCOL 17 GM/PKT PO SCH (09:57)
[2022-02-28] MEDS: ENOXAPARIN 40 MG/0.4 ML SYR SUBQ SCH (09:58)
[2022-02-28] MEDS: MORPHINE SULFATE 2 MG/ML SYR IVP PRN ×2 (10:13→15:34)
--- NOTE | 2022-02-28 12:00 | NUR ---
REFUSED LUNCH AND ENSURE. DRANK ONLY JUICE
[2022-02-28] MEDS: AMIKACIN 700 MG in DEXTROSE 5% 100 ML IV SCH (15:02)
--- NOTE | 2022-02-28 15:15 | NUR ---
REFUSED EDUCATION REGARDING SPIROMETER. "I WANT TO GO TO SLEEP," PER PT.
[2022-02-28] MEDS ORDERED: MAG SULF 2000 MG/WATER PREMIX 50 ML IV SCH (16:00)
--- NOTE | 2022-02-28 18:40 | NUR ---
PM CARE RENDERED. BLOODY SMEARS NOTED AROUND VAGINAL AREA, APPEARS LIKE MENSTRUATION. DENIES ABD/PELVIC PAIN AT THIS TIME. GOOD PERICARE RENDERED. MADE WARM AND COMFORTABLE. REFUSED DINNER, OFFERED X3, CONT TO REFUSE. REFUSING EDUCATION REGARDING SPIROMERTER NO BM DURING SHIFT. CONT TO MONITOR.
[2022-02-28] MEDS: traZODone 50 MG TAB PO SCH (21:41)
[2022-03-01] VITALS (18 sets, daily range): BP systolic 90–135; BP diastolic 54–78
[2022-03-01] MEDS: LORazepam 2 MG/ML VIAL IVP PRN ×4 (04:25→20:44)
[2022-03-01] MEDS: ACETAMINOPHEN 325 MG TAB PO PRN (04:34)
[2022-03-01 05:51] LABS: BASOPHILS % (AUTO) 0.7 % (0.0-2.0); EOSINOPHILS # (AUTO) 0.3 K/uL (0-0.4); HEMATOCRIT 31.4 % (36-48); HEMOGLOBIN 10.7 g/dL (12.0-16.0); LYMPHOCYTES # (AUTO) 2.4 K/uL (2.5-16.5); LYMPHOCYTES % (AUTO) 38.7 % (20.5-51.1); MEAN CORPUSCULAR HEMOGLOBIN 29 pg (27-31); MEAN CORPUSCULAR HGB CONC 34 g/dL (33-37); MEAN CORPUSCULAR VOLUME 85.1 fL (80-94); MONOCYTES # (AUTO) 0.4 K/uL (0.8-1.0); MONOCYTES % (AUTO) 6.9 % (1.7-9.3); NEUTROPHILS % (AUTO) 48.7 % (42.2-75.2); PLATELET COUNT (AUTO) 286 K/uL (140-450); RED BLOOD CELL COUNT(AUTO) 3.69 MIL/uL (4.20-5.40); WHITE BLOOD COUNT (AUTO) 6.2 K/uL (4.8-10.8)
[2022-03-01] MEDS: MIDODRINE 5 MG TAB PO SCH ×6 (06:00→18:00)
--- NOTE | 2022-03-01 06:00 | NUR ---
[id number] CONT. WITH STABLE VS. PT HAS BEEN A/OX4. BP SLIGHT LOW AT TIMES. IV I/P VIA LEFT ARM PICC-LINE. PT HAS BEEN IN SR-S.MINDY-NO S/S. PT HAS SUPRA PUBIC CATH I/P. 200CC OUT-YELL/CLR. NO STOOL. PT REQUESTED ATIVAN X2(LAST AT APROX 0458). PT SLEEPING QUIETLY AFTER MED. PT C/O SLIGHT NAUSEA X1 EARLIER IN SHIFT. PT MED WITH ZOFRAN 4MG IVP. PT CONT.ON RA WITH POX OF 97%. PT'S FAMILY CALLING EARLIER. GEN COND HAS BEEN STABLE. PT ENDORSED TO DAYSHIFT SVETLANA GEN. COND HAS BEEN STABLE/GUARDED. NO S/S OF SEIZURE ACTIVITY. DESTINEE RN
[2022-03-01 06:25] LABS: ANION GAP 11.4 (8-16); CARBON DIOXIDE 31.2 mmol/L (21-32); CREATININE 0.3 mg/dL (0.6-1.3); POTASSIUM 3.6 mmol/L (3.5-5.1)
[2022-03-01 06:30] LABS: MAGNESIUM 2.2 mg/dL (1.8-2.4); PHOSPHORUS 4.3 mg/dL (2.5-4.9)
--- NOTE | 2022-03-01 07:30 | NUR ---
REPORT FROM ENDODONTIST NURSE. RECEIVED ON BED DROWSY, EASILY AROUSAL, DENIES PAIN AT THIS TIME; NOT IN ANY FORM OF DISTRESS. ASSESSMENT DONE. REPOSITIONED TO SIDE, SUPPORTED WITH PILLOWS. NEEDS ATTENDED. KEPT CLEAN AND DRY. CALL LIGHT WITHIN REACH. SR-SB CONT TO MONITOR.
[2022-03-01] MEDS: FAMOTIDINE 20 MG/2 ML VIAL IV SCH ×2 (09:06→21:00)
[2022-03-01] MEDS: ONDANSETRON 4 MG/2 ML VIAL IVP PRN ×3 (09:06→21:08)
[2022-03-01] MEDS: levETIRAcetam 1,000 MG in NACL 0.9% 100 ML IV SCH ×2 (09:07→21:00)
[2022-03-01] MEDS: ENOXAPARIN 40 MG/0.4 ML SYR SUBQ SCH (09:07)
[2022-03-01] MEDS: MORPHINE SULFATE 2 MG/ML SYR IVP PRN ×2 (09:08→13:24)
[2022-03-01] MEDS: FERROUS SULFATE 325 MG TABEC PO SCH (09:22)
[2022-03-01] MEDS: FLUDROCORTISONE 0.1 MG TAB PO SCH (09:22)
[2022-03-01] MEDS: LACTOBACILLUS RHAMNOSUS GG 1 EACH CAP PO SCH (09:23)
[2022-03-01] MEDS: DOCUSATE SODIUM 100 MG GELCAP PO SCH ×2 (09:23→21:00)
[2022-03-01] MEDS: LACTULOSE 20 GM/30 ML UDC PO SCH ×2 (09:23→21:00)
[2022-03-01] MEDS: POLYETHYLENE GLYCOL 17 GM/PKT PO SCH (09:23)
[2022-03-01] MEDS: ASCORBIC ACID 500 MG TAB PO SCH (09:24)
--- NOTE | 2022-03-01 13:00 | NUR ---
PATIENT HAD LIQUID BOWEL MOVEMENT YELLOW COLOR, PER PT STATEMENT AFTER LAXATIVE SUPPOSITORY ADMINISTERED YESTERDAY ONLY HAVE 1 BM. STILL FEELING ABDOMINAL DISCOMFORT. DULCOLAX SUPPOSITORY ADMINISTERED FELT HARD BM. GOOD PERICARE PROVIDED. TURN AND REPOSITION FOR COMFORT WITH PILLOW SUPPORT.
[2022-03-01] MEDS: AMIKACIN 700 MG in DEXTROSE 5% 100 ML IV SCH (14:50)
--- NOTE | 2022-03-01 15:00 | NUR ---
BED BATH, HAIR SHAMPOO PROVIDED. 2 PERSON ASSISTANCE NEEDED.TOTAL DEPENDENT. TURN AND REPOSITION WITH PILLOW SUPPORT.
[2022-03-01] MEDS ORDERED: KCL 20 MEQ/WATER INJ PREMIX 200 ML IV SCH (15:45)
--- NOTE | 2022-03-01 16:00 | NUR ---
PATIENT MOM CALLED UPDATED PATIENT CURRENT CONDITION AND POC. VERBALIZED UNDERSTANDING.
--- NOTE | 2022-03-01 19:30 | NUR ---
RECEIVED PT. AWAKE,ALERT AND ABLE TO EXPRESS NEEDS. EYES PERRLA. ON ROOM AIR WITH O2 SAT 96%. SINUS RHYTHM / SINUS BRADYCARDIA 58 ON CAMPUS INTERVIEWS INTERN. IV TO LEFT UPPER ARM PICC LINE INFUSING NS KVO, SITE PATENT AND INTACT. ON A REGULAR DIET AND A FEEDER. WITH SUPRAPUBIC CATHETER WITH CLEAR YELLOW URINE. PT. IS PARAPLEGIC AND SKIN INTACT. MAKE ALL NEEDS KNOWN. REPOSITIONED AND PLACED IN COMFORTABLE POSITION. NO S/S OF PAIN.WILL CONT. TO MONITOR.
[2022-03-01] MEDS: traZODone 50 MG TAB PO SCH (21:00)
[2022-03-02] VITALS: BP 129/78
[2022-03-02] MEDS: MORPHINE SULFATE 2 MG/ML SYR IVP PRN ×5 (00:01→17:33)
[2022-03-02] MEDS: LORazepam 2 MG/ML VIAL IVP PRN ×4 (02:50→17:32)
[2022-03-02 04:00] VITALS: BP 115/66
[2022-03-02 06:17] LABS: BASOPHILS % (AUTO) 0.5 % (0.0-2.0); EOSINOPHILS # (AUTO) 0.4 K/uL (0-0.4); EOSINOPHILS % (AUTO) 7.1 % (0.0-4.0); HEMOGLOBIN 10.4 g/dL (12.0-16.0); LYMPHOCYTES # (AUTO) 2.7 K/uL (2.5-16.5); LYMPHOCYTES % (AUTO) 48.2 % (20.5-51.1); MEAN CORPUSCULAR HEMOGLOBIN 29 pg (27-31); MEAN CORPUSCULAR HGB CONC 34 g/dL (33-37); MEAN CORPUSCULAR VOLUME 86.3 fL (80-94); MONOCYTES # (AUTO) 0.3 K/uL (0.8-1.0); MONOCYTES % (AUTO) 5.8 % (1.7-9.3); NEUTROPHILS # (AUTO) 2.1 K/uL (1.8-7.7); NEUTROPHILS % (AUTO) 38.4 % (42.2-75.2); PLATELET COUNT (AUTO) 290 K/uL (140-450); RED BLOOD CELL COUNT(AUTO) 3.59 MIL/uL (4.20-5.40); RED CELL DISTRIBUTION WIDTH 14.2 % (11.6-13.7); WHITE BLOOD COUNT (AUTO) 5.6 K/uL (4.8-10.8)
[2022-03-02] MEDS: MIDODRINE 5 MG TAB PO SCH ×4 (06:40→17:32)
--- NOTE | 2022-03-02 07:30 | NUR ---
RECEIVED REPORT FROM TELLER COORDINATOR. PT IN BED WITH HOB ELEVATED. AOX4, ABLE TO [place]EPHAN[place] NEEDS KNOWN. NO RESPIRATORY DISTRESS ON ROOM AIR. WITH C/O GENERALIZED PAIN AND NAUSEA, WILL MEDICATE WHEN DUE. WITH ELLA PICC LINE RUNNING NS KVO. PARAPLEGIA NOTED. CALL LIGHT WITHIN REACH
--- NOTE | 2022-03-02 07:36 | NUR ---
REPORT GIVEN TO DAY SHIFT RN JORDAN FOR CONTINUITY OF CARE. ALL QUESTIONS ANSWERED.
[2022-03-02 08:00] VITALS: BP 94/60
[2022-03-02 08:03] LABS: ANION GAP 11.6 (8-16); CARBON DIOXIDE 30.2 mmol/L (21-32); CREATININE 0.4 mg/dL (0.6-1.3); POTASSIUM 3.8 mmol/L (3.5-5.1)
[2022-03-02 08:11] LABS: MAGNESIUM 1.8 mg/dL (1.8-2.4); PHOSPHORUS 4.1 mg/dL (2.5-4.9)
[2022-03-02] MEDS: ONDANSETRON 4 MG/2 ML VIAL IVP PRN ×3 (08:20→17:32)
--- NOTE | 2022-03-02 08:30 | NUR ---
ASSISTED WITH BREAKFAST, DUE MEDS GIVEN
[2022-03-02] MEDS: levETIRAcetam 1,000 MG in NACL 0.9% 100 ML IV SCH (08:42)
[2022-03-02] MEDS: LACTOBACILLUS RHAMNOSUS GG 1 EACH CAP PO SCH (08:43)
[2022-03-02] MEDS: LACTULOSE 20 GM/30 ML UDC PO SCH (08:43)
[2022-03-02] MEDS: FERROUS SULFATE 325 MG TABEC PO SCH (08:43)
[2022-03-02] MEDS: DOCUSATE SODIUM 100 MG GELCAP PO SCH (08:43)
[2022-03-02] MEDS: ASCORBIC ACID 500 MG TAB PO SCH (08:43)
[2022-03-02] MEDS: POLYETHYLENE GLYCOL 17 GM/PKT PO SCH (08:43)
[2022-03-02] MEDS: FAMOTIDINE 20 MG/2 ML VIAL IV SCH (08:43)
[2022-03-02] MEDS: FLUDROCORTISONE 0.1 MG TAB PO SCH (08:43)
[2022-03-02] MEDS: ENOXAPARIN 40 MG/0.4 ML SYR SUBQ SCH (08:44)
[2022-03-02] MEDS ORDERED: LEVE1000 PO (10:50)
[2022-03-02] MEDS ORDERED: AMIK500I IV (10:50)
[2022-03-02] MEDS ORDERED: PRO5 PO (10:50)
--- NOTE | 2022-03-02 11:21 | NUR ---
MESSAGED DR MANNING, PT FEELS THAT SHE IS NOT READY FOR DISCHARGE AND THAT SHE STILL FEELS WEAK
--- NOTE | 2022-03-02 11:22 | NUR ---
PER DR MANNING, PT IS STABLE FOR DISCHARGE AND HER NEEDS CAN BE TAKEN CARED OFF AT A SNF
[2022-03-02 12:00] VITALS: BP 133/77
--- NOTE | 2022-03-02 12:00 | NUR ---
DC PLANNING: FAXED THE PAPER WORK TO [facility], AWAITING FOR BED. CM TO FOLLOW
--- NOTE | 2022-03-02 14:14 | NUR ---
SPOKE WITH JOSY FROM [facility] WHO REPORTS THAT FACILITY CURRENTLY DOES NOT HAVE AN IV NURSE TO ADMINISTER IV ANTIBIOTICS. JOSY REQUESTING PT FINISH ANTIBIOTICS AT [facility] AND RETURN ON PO ANTIBIOTICS ONCE DONE. SW ENDORSED TO CM. Addendum: 03/02/22 at 1624 by Martha Dillon SS PT ACCEPTED TO ROOM 21B, CALL REPORT NUMBER [phone]. TRANSPORTATION ARRANGED WITH [facility] [phone] FOR 1830 P/UP . ENDORSED TO PT NURSE.
[2022-03-02] MEDS: AMIKACIN 700 MG in DEXTROSE 5% 100 ML IV SCH (15:00)
[2022-03-02 16:00] VITALS: BP 121/73
[2022-03-02] MEDS ORDERED: MAG SULF 2000 MG/WATER PREMIX 50 ML IV SCH (16:00)
[2022-03-02] MEDS ORDERED: POTASSIUM CHLORIDE 10 MEQ TABER PO SCH (16:00)
--- NOTE | 2022-03-02 16:11 | NUR ---
03/02/22 RD FOLLOW UP COMPLETED PLEASE REFER TO NUTRITION ASSESSMENT UNDER CARE ACTIVITY FOR ESTIMATED NUTRITIONAL NEEDS. 1. CONTINUE REGULAR DIET TOLERATED 2.RECOMMEND ENSURE 1XDAY TO HELP INCREASE PO INTAKE (PROVIDES 350 KCAL AND 40 GM PROTEIN DAILY) 3. MONITOR GI SYMPTOMS, PO INTAKE, NUTRITION RELATED LAB VALUES 4. RD TO FOLLOW-UP 3-5 DAYS, MODERATE RISK REVIEWED BY ANU CONSTANTINO RD
--- NOTE | 2022-03-02 17:25 | NUR ---
P.T. NOTES P.T. EVAL COMPLETED; REFER TO EVAL FOR DETAILS.
--- NOTE | 2022-03-02 18:15 | NUR ---
REPORT GIVEN TO SAMPSON MOTA IN [facility]
--- NOTE | 2022-03-02 19:12 | NUR ---
SBAR REPORT GIVEN TO NIK RN, ALL CARES ENDORSED.
--- NOTE | 2022-03-02 19:30 | NUR ---
ASSUMED CARE OF THIS PATIENT AND ASSESSMENT DONE AND CPMPLETED.AWAKE ,ALERT AND ORIENTED.AFEBRILE.DENIES ANY PAIN AND DISCOMFORT.ON ROOM AIR WITH NO RESPIRATORY PROBLEMS.REMAINS PARAPLEGIC.SKIN STILL INTACT AND SUPRAPUBIC CATHETER IN PLACE AND DRAINING ADEQUATE AMOUNT OF URINE.PIICC LINE BENIGN AND IN PLACE.WILL PROCEED WITH CURRENT CARE PLAN.
--- NOTE | 2022-03-02 20:20 | NUR ---
PATIENT WAS DISCHARGED TO [facility] IN STABLE CONDITION
[2022-03-03] MEDS ORDERED: MORPHINE SULFATE 2 MG/ML SYR ONE (20:00)
== END 2022-03-02 20:20 | DRG 720 ==
LOC: MED 21:57 → MTU 02-21 05:10 → MIC 02-25 09:57
PROVIDERS: ADMIT Hospitalist; ATTEND Hospitalist
PROC: 0T2BX0Z Change Drainage Device in Bladder, External Approach (ICD-10-PCS; 2022-02-21)
PROC: 02H633Z Insertion of Infusion Device into Right Atrium, Percutaneous Approach (ICD-10-PCS; principal; 2022-02-27)
PROC: B548ZZA Ultrasonography of Superior Vena Cava, Guidance (ICD-10-PCS; 2022-02-27)
PROC: 4A00X4Z Measurement of Central Nervous Electrical Activity, External Approach (ICD-10-PCS; 2022-02-27)
DX: A41.9 Sepsis, unspecified organism (principal); R65.21 Severe sepsis with septic shock; S14.106A Unspecified injury at C6 level of cervical spinal cord, initial encounter; E44.0 Moderate protein-calorie malnutrition; N39.0 Urinary tract infection, site not specified; G82.20 Paraplegia, unspecified; Z93.50 Unspecified cystostomy status; E27.40 Unspecified adrenocortical insufficiency; D64.9 Anemia, unspecified; E87.6 Hypokalemia; Z68.1 Body mass index [BMI] 19.9 or less, adult; R56.9 Unspecified convulsions; B96.5 Pseudomonas (aeruginosa) (mallei) (pseudomallei) as the cause of diseases classified elsewhere; Z20.822 Contact with and (suspected) exposure to COVID-19; Z16.30 Resistance to unspecified antimicrobial drugs; N31.9 Neuromuscular dysfunction of bladder, unspecified; N89.8 Other specified noninflammatory disorders of vagina; X58.XXXA Exposure to other specified factors, initial encounter; Z88.1 Allergy status to other antibiotic agents; Z90.49 Acquired absence of other specified parts of digestive tract; Y93.89 Activity, other specified; Y92.89 Other specified places as the place of occurrence of the external cause
CPT/HCPCS: 36415; 70450; 71045; 80048; 80053; 80150; 81001; 82140; 83690; 83735; 84100; 85025; 87081; 87086; 87210; 93005; 95816; 96361; 96365; 96375; 97163-GP; 99285; J0278; J0360; J1650; J1720; J1953; J2060; J2185; J2270; J2405; J3475; J3480; J3490; J7060; P9046

== ENCOUNTER 2022-03-03 17:03 | Emergency (ER) | payer OTHER ==
[~2022-03-03] VITALS: Ht 162.6 cm; Wt 59.0 kg
[~2022-03-03 17:03] MED LIST: ACET-2619 PO; AMIK500I IV; ASCO500T95 PO; BISA-218 RC; CRAN450T5 PO; DOCU-299 PO; FERR325E14 PO; FLO.1 PO; LACT10SO93 PO; LACT500C2 PO; LEVE1000 PO; MIRABULK PO; ONDA-188 PO; PRO5 PO; TIZA-313 PO; TRAZ-343 PO; norco PO
[2022-03-03] MEDS ORDERED: NACL 0.9% 1,000 ML IV ONE (17:20)
[2022-03-03] MEDS ORDERED: KETOROLAC 15 MG/ML VIAL IVP ONE (17:25)
[2022-03-03 17:54] LABS: HEMOGLOBIN 10.9 g/dL (12.0-16.0); RED BLOOD CELL COUNT(AUTO) 3.78 MIL/uL (4.20-5.40)
[2022-03-03 17:57] LABS: HEMATOCRIT 32.4 % (36-48); MEAN CORPUSCULAR HEMOGLOBIN 29 pg (27-31); MEAN CORPUSCULAR HGB CONC 34 g/dL (33-37); MEAN CORPUSCULAR VOLUME 85.7 fL (80-94); PLATELET COUNT (AUTO) 331 K/uL (140-450); RED CELL DISTRIBUTION WIDTH 14.2 % (11.6-13.7)
[2022-03-03 17:58] LABS: BASOPHILS % (AUTO) 0.6 % (0.0-2.0); EOSINOPHILS # (AUTO) 0.4 K/uL (0-0.4); EOSINOPHILS % (AUTO) 5.9 % (0.0-4.0); LYMPHOCYTES # (AUTO) 2.2 K/uL (2.5-16.5); LYMPHOCYTES % (AUTO) 36.3 % (20.5-51.1); MONOCYTES # (AUTO) 0.4 K/uL (0.8-1.0); NEUTROPHILS # (AUTO) 3.1 K/uL (1.8-7.7); NEUTROPHILS % (AUTO) 51.2 % (42.2-75.2)
--- NOTE | 2022-03-03 18:02 | NUR ---
PT REFUSED BLOOD CULTURES. MD LUNA NOTFIED.
[2022-03-03 18:04] VITALS: BP 118/82
[2022-03-03 18:20] LABS: ALBUMIN 3.8 g/dL (3.4-5.0); ANION GAP 9.5 (8-16); CARBON DIOXIDE 32.9 mmol/L (21-32); CREATININE 0.4 mg/dL (0.6-1.3); POTASSIUM 3.4 mmol/L (3.5-5.1); TOTAL BILIRUBIN 0.4 mg/dL (0.0-1.0)
--- NOTE | 2022-03-03 19:29 | NUR ---
REPORT GIVEN TO NURSE MEDINA FOR CONTINUITY OF CARE.
[2022-03-03] MEDS ORDERED: MORPHINE SULFATE 4 MG/ML SYR IVP ONE (20:00)
[2022-03-03 20:46] LABS: APPEARANCE,URINE CLEAR (CLEAR); BILIRUBIN,URINE NEGATIVE (NEGATIVE); BLOOD, URINE NEGATIVE (NEGATIVE); COLOR,URINE YELLOW (YELLOW); LEUKOCYTE ESTERASE ,URINE NEGATIVE (NEGATIVE); NITRITE, URINE NEGATIVE (NEGATIVE); UGLUCOSE NEGATIVE (NEGATIVE)
[2022-03-03] MEDS ORDERED: LORazepam 0.5 MG TAB PO ONE (21:10)
[2022-03-04 04:00] VITALS: BP 125/80
--- NOTE | 2022-03-04 08:35 | NUR ---
PATIENT AWAITING FOR D/C TO THE FACILITY.
[2022-03-04] MEDS ORDERED: HYDROcodone/APAP 5/325 MG 1 TAB TAB PO ONE (08:55)
--- NOTE | 2022-03-04 08:55 | NUR ---
PT C/O CHEST PAIN. DR PULIDO MADE AWARE, NO NEW ORDERS
--- NOTE | 2022-03-07 10:03 | NUR ---
LATE ENTRY - CONFIRMED WITH NURSE NS INFUSION COMPLETED AT 1835 03/03/22.
== END 2022-03-04 09:44 ==
LOC: MED 17:03
DX: R53.1 Weakness (principal); R50.9 Fever, unspecified; R06.02 Shortness of breath; Z88.8 Allergy status to other drugs, medicaments and biological substances
CPT/HCPCS: 36415; 80053; 81003; 85025; 93005; 96361; 96374; 96375; 99284; J1885; J7030

== ENCOUNTER 2022-03-05 06:53 | Inpatient (IN) | payer OTHER ==
[~2022-03-05] VITALS: Ht 162.6 cm; Wt 59.0 kg
[2022-03-05 06:59] VITALS: BP 96/71
[2022-03-05] MEDS ORDERED: ACETAMINOPHEN EXTRA STRENGTH 500 MG TAB PO ONE (07:00)
[2022-03-05] MEDS ORDERED: KETOROLAC 30 MG/ML VIAL IVP ONE (07:00)
[2022-03-05] MEDS ORDERED: NACL 0.9% 1,000 ML IV ONE (07:00)
--- NOTE | 2022-03-05 07:53 | NUR ---
HERE FOR LOW BP IN LONGTERM, NORMAL BP IN ER PT C/O BODYACHE 8/10 AND CHILLS, NO DISTRESS NOTED, O2 SAT 98% RA, SR UP TIMES 2, HAS PICC LINE LUE, NS RUNNING WELL ALREADY MEDICATED ORDERED
[2022-03-05 08:03] LABS: APPEARANCE,URINE CLEAR (CLEAR); BILIRUBIN,URINE NEGATIVE (NEGATIVE); BLOOD, URINE 1+ (NEGATIVE); COLOR,URINE YELLOW (YELLOW); LEUKOCYTE ESTERASE ,URINE TRACE (NEGATIVE); NITRITE, URINE NEGATIVE (NEGATIVE); UGLUCOSE NEGATIVE (NEGATIVE)
[2022-03-05 08:34] LABS: OTHER CASTS, URINE None Seen /LPF (None Seen)
[2022-03-05] MEDS: MORPHINE SULFATE 2 MG/ML SYR IVP PRN ×2 (08:38→08:39)
--- NOTE | 2022-03-05 09:30 | NUR ---
[facility] CALLED, REQUESTING TO GIVE AMIKIN, TODAY IS HER LAST CURRENT DOSE. THEY WERE INFORMED IT WOULD BE ER MD DECISION
[2022-03-05 10:29] LABS: BASOPHILS # (AUTO) 0.1 K/uL (0.00-0.22); BASOPHILS % (AUTO) 0.8 % (0.0-2.0); EOSINOPHILS # (AUTO) 0.3 K/uL (0-0.4); EOSINOPHILS % (AUTO) 4.5 % (0.0-4.0); HEMATOCRIT 30.1 % (36-48); HEMOGLOBIN 10.1 g/dL (12.0-16.0); LYMPHOCYTES # (AUTO) 1.8 K/uL (2.5-16.5); LYMPHOCYTES % (AUTO) 25.5 % (20.5-51.1); MEAN CORPUSCULAR HEMOGLOBIN 28 pg (27-31); MEAN CORPUSCULAR HGB CONC 33 g/dL (33-37); MEAN CORPUSCULAR VOLUME 84.9 fL (80-94); MONOCYTES # (AUTO) 0.4 K/uL (0.8-1.0); MONOCYTES % (AUTO) 5.2 % (1.7-9.3); NEUTROPHILS # (AUTO) 4.5 K/uL (1.8-7.7); PLATELET COUNT (AUTO) 295 K/uL (140-450); RED BLOOD CELL COUNT(AUTO) 3.55 MIL/uL (4.20-5.40); RED CELL DISTRIBUTION WIDTH 14.3 % (11.6-13.7)
[2022-03-05 10:34] LABS: ALBUMIN 3.8 g/dL (3.4-5.0); ANION GAP 12.1 (8-16); CARBON DIOXIDE 28.5 mmol/L (21-32); CREATININE 0.4 mg/dL (0.6-1.3); POTASSIUM 3.6 mmol/L (3.5-5.1); TOTAL BILIRUBIN 0.3 mg/dL (0.0-1.0)
[2022-03-05 10:46] LABS: FREE T4 (FREE THYROXINE) 1.15 ng/dL (0.76-1.46); THYROID STIMULATING HORMONE 1.19 uIU/mL (0.34-3.74)
--- NOTE | 2022-03-05 11:00 | NUR ---
TARIK AVILES STATED NOT TO GIVE HER THE AMIKIN FOR NOW PT WILL BE ADMITTED
[2022-03-05] MEDS ORDERED: LORazepam 1 MG TAB PO PRN (11:45)
[2022-03-05] MEDS ORDERED: POTASSIUM CHLORIDE 10 MEQ TABER PO PRN (11:45)
[2022-03-05] MEDS ORDERED: HYDROcodone/APAP 5/325 MG 1 TAB TAB PO PRN (11:45)
[2022-03-05] MEDS ORDERED: METOCLOPRAMIDE 10 MG/2 ML INJ VIAL IVP PRN (11:45)
[2022-03-05] MEDS ORDERED: MAG SULF 2000 MG/WATER PREMIX 50 ML IV PRN (11:45)
[2022-03-05] MEDS ORDERED: ZOLPIDEM 5 MG TAB PO PRN (11:45)
[2022-03-05] MEDS ORDERED: ACETAMINOPHEN 325 MG TAB PO PRN (11:45)
[2022-03-05] MEDS ORDERED: ONDANSETRON 4 MG/2 ML VIAL IVP PRN (11:45)
[2022-03-05] MEDS ORDERED: KCL 20 MEQ/WATER INJ PREMIX 200 ML IV PRN (11:45)
[2022-03-05] MEDS: NACL 0.9% 1,000 ML IV SCH (12:00)
[2022-03-05] MEDS: MIDODRINE 5 MG TAB PO SCH ×2 (13:00→15:45)
[2022-03-05] MEDS: MORPHINE SULFATE 4 MG/ML SYR IVP PRN ×2 (13:24→18:22)
[2022-03-05] MEDS: ONDANSETRON 4 MG/2 ML VIAL IVP PRN (13:24)
--- NOTE | 2022-03-05 13:28 | NUR ---
medicated for bodyache 09/22 as ordered, o2 sat 99% ra, sr up times 2
[2022-03-05] MEDS ORDERED: AMIKACIN PER PHARMACY MC PRN (13:35)
--- NOTE | 2022-03-05 14:30 | NUR ---
midrodine held, not given. pt had an allergic reaction last night has been taking Fludrocortisone
[2022-03-05] MEDS ORDERED: VANCOMYCIN PER PHARMACY MC PRN (17:10)
[2022-03-05] MEDS ORDERED: VANCOMYCIN 1,000 MG VIAL ONE (19:06)
[2022-03-05] MEDS: VANCOMYCIN 1GM/DEXT 5% PREMIX 200 ML IV SCH (19:29)
--- NOTE | 2022-03-05 19:39 | NUR ---
Patient resting in bed, A/Ox4, chest rise and fall symmetrical, no c/o pain or s/s of discomfort.
--- NOTE | 2022-03-05 20:07 | NUR ---
Patient resting in bed, A/Ox4, chest rise and fall symmetrical, no c/o pain or s/s of discomfort.
--- NOTE | 2022-03-05 22:00 | NUR ---
Patient resting in bed, A/Ox4, chest rise and fall symmetrical, no c/o pain or s/s of discomfort.
[2022-03-05] MEDS: levETIRAcetam 500 MG TAB PO SCH (22:05)
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
--- NOTE | 2022-03-05 22:44 | NUR ---
Patient will be admitted to care of Darlene MOTA. Admited to Telemetry. Will go to room 116A. Belongings list completed. Report to Darlene MOTA. Darlene MOTA verbalized understanding of report, no further questions Addendum: 03/05/22 at 2253 by [id number] Patient will be admitted to care of Darlene MOTA. Admited to Medsurg. Will go to room 116A. Belongings list completed. Report to Darlene MOTA. Darlene MOTA verbalized understanding of report, no further questions
[2022-03-06] MEDS: NACL 0.9% 1,000 ML IV SCH ×2 (00:15→13:10)
[2022-03-06] MEDS: MORPHINE SULFATE 4 MG/ML SYR IVP PRN ×3 (01:02→11:25)
--- NOTE | 2022-03-06 01:30 | NUR ---
MEDICATED WITH MORPHINE 4 MG FOR H/A AT 0052 B/P 157/89 HR 61. MED EFFECTIVE IN RELIEVING PAIN 0/10
[2022-03-06] MEDS ORDERED: Z-GUARD PASTE TP PRN (06:05)
[2022-03-06] MEDS ORDERED: VANCOMYCIN 1,000 MG VIAL ONE (06:15)
[2022-03-06] MEDS: VANCOMYCIN 1GM/DEXT 5% PREMIX 200 ML IV SCH (06:28)
--- NOTE | 2022-03-06 06:46 | NUR ---
MEDICATED WITH MORPHINE 4 MG FOR H/A AND NECK PAIN. AT 0616. NOTED RELIEF 0/10 FLACC. LAUGHING AND CONVERSING WITH STAFF.
[2022-03-06 07:28] LABS: ANION GAP 10.8 (8-16); CARBON DIOXIDE 27.6 mmol/L (21-32); CREATININE 0.3 mg/dL (0.6-1.3); POTASSIUM 3.4 mmol/L (3.5-5.1)
--- NOTE | 2022-03-06 07:30 | NUR ---
REPORT TO AM NURSE PT STABLE.NO S/S OF DISTRESS. ALL SAFETY MEASURES IN PLACE. LAST B/P 143/86. RELINQUISHED CARE OF PT AT THIS TIME.
[2022-03-06 07:31] LABS: BASOPHILS % (AUTO) 0.4 % (0.0-2.0); EOSINOPHILS # (AUTO) 0.4 K/uL (0-0.4); EOSINOPHILS % (AUTO) 7.5 % (0.0-4.0); LYMPHOCYTES # (AUTO) 2.5 K/uL (2.5-16.5); LYMPHOCYTES % (AUTO) 46.6 % (20.5-51.1); MEAN CORPUSCULAR HEMOGLOBIN 29 pg (27-31); MEAN CORPUSCULAR HGB CONC 33 g/dL (33-37); MEAN CORPUSCULAR VOLUME 86.3 fL (80-94); MONOCYTES # (AUTO) 0.4 K/uL (0.8-1.0); MONOCYTES % (AUTO) 8.1 % (1.7-9.3); NEUTROPHILS # (AUTO) 2.1 K/uL (1.8-7.7); NEUTROPHILS % (AUTO) 37.4 % (42.2-75.2); PLATELET COUNT (AUTO) 289 K/uL (140-450); RED BLOOD CELL COUNT(AUTO) 3.47 MIL/uL (4.20-5.40); RED CELL DISTRIBUTION WIDTH 14.2 % (11.6-13.7); WHITE BLOOD COUNT (AUTO) 5.5 K/uL (4.8-10.8)
[2022-03-06 08:00] VITALS: BP 124/85
[2022-03-06] MEDS ORDERED: AMIKACIN 500 MG/2 ML VIAL IV SCH (09:00)
[2022-03-06] MEDS: DEXTROSE 5% IV SCH (09:00)
[2022-03-06] MEDS: AMIKACIN IV SCH (09:00)
[2022-03-06] MEDS ORDERED: VANCOMYCIN 750 MG in DEXTROSE 5% 250 ML IV SCH (10:00)
[2022-03-06] MEDS: ONDANSETRON 4 MG/2 ML VIAL IVP PRN (11:08)
[2022-03-06] MEDS: DOCUSATE SODIUM 100 MG GELCAP PO SCH (11:21)
[2022-03-06] MEDS: FLUDROCORTISONE 0.1 MG TAB PO SCH (11:22)
[2022-03-06] MEDS: levETIRAcetam 500 MG TAB PO SCH ×2 (11:22→23:08)
[2022-03-06] MEDS: ENOXAPARIN 40 MG/0.4 ML SYR SUBQ SCH (11:23)
[2022-03-06] MEDS: MAGNESIUM OXIDE 400 MG TAB PO PRN (11:25)
[2022-03-06] MEDS: Z-GUARD PASTE TP SCH (13:13)
--- NOTE | 2022-03-06 15:31 | NUR ---
PATIENT HAS BEEN SCREENED AND CATEGORIZED HIGH NUTRITION RISK. PATIENT WILL BE SEEN WITHIN 1-2 DAYS OF ADMISSION. REVIEWED BY ANU CONSTANTINO RD
[2022-03-06 16:00] VITALS: BP 155/86
--- NOTE | 2022-03-06 19:16 | NUR ---
ENDORSE PATIENT IN STABLE CONDITION TO PM SHIFT NURSE WHILE NS INFUSING @80ML/HR VIA ELLA PICC SITE, SUPRAPUBIC CATHETER DRAINING URINE. PATIENT SLIGHTLY CALM DOWN AFTER HAD [facility] NORM[facility] LAB (CORRECT MAGNESIUM AND POTASSIUM); PATIENT IS OBSERVATION STATUS AND WHEN NURSE EARLY TIME DISCLOSE THAT SHE IS GOING TO BE DISCHARGE HOME, PATIENT BREAK DOWN INTO TEAR AND STATES THAT "[SHE] IS NOT SURE THAT [SHE] CAN LEFT THIS HOSPITAL." THEN PATIENT REPORT NAUSEA AND REQUEST ZOFRAN, THEN PAIN REQUESTED MORPHINE.
--- NOTE | 2022-03-06 19:42 | NUR ---
pt called for some blanket. she is alert and oriented. she said she wanted to sleep.
[2022-03-06] MEDS: VANCOMYCIN 750 MG in DEXTROSE 5% 250 ML IV SCH (23:11)
[2022-03-07] MEDS: Z-GUARD PASTE TP SCH (02:57)
[2022-03-07] MEDS: NACL 0.9% 1,000 ML IV SCH ×2 (03:00→13:47)
[2022-03-07 05:44] VITALS: BP 123/89
[2022-03-07] MEDS: MORPHINE SULFATE 4 MG/ML SYR IVP PRN ×3 (06:41→15:39)
[2022-03-07 07:40] LABS: BASOPHILS % (AUTO) 0.8 % (0.0-2.0); EOSINOPHILS # (AUTO) 0.4 K/uL (0-0.4); EOSINOPHILS % (AUTO) 6.9 % (0.0-4.0); HEMATOCRIT 29.7 % (36-48); HEMOGLOBIN 10.1 g/dL (12.0-16.0); LYMPHOCYTES # (AUTO) 1.8 K/uL (2.5-16.5); LYMPHOCYTES % (AUTO) 32.9 % (20.5-51.1); MEAN CORPUSCULAR HEMOGLOBIN 29 pg (27-31); MEAN CORPUSCULAR HGB CONC 34 g/dL (33-37); MEAN CORPUSCULAR VOLUME 85.7 fL (80-94); MONOCYTES # (AUTO) 0.3 K/uL (0.8-1.0); MONOCYTES % (AUTO) 6.4 % (1.7-9.3); NEUTROPHILS # (AUTO) 2.9 K/uL (1.8-7.7); PLATELET COUNT (AUTO) 297 K/uL (140-450); RED BLOOD CELL COUNT(AUTO) 3.47 MIL/uL (4.20-5.40); WHITE BLOOD COUNT (AUTO) 5.4 K/uL (4.8-10.8)
[2022-03-07 07:44] LABS: ANION GAP 9.7 (8-16); CARBON DIOXIDE 28.8 mmol/L (21-32); CREATININE 0.3 mg/dL (0.6-1.3); POTASSIUM 3.5 mmol/L (3.5-5.1)
[2022-03-07 08:00] VITALS: BP 142/85
--- NOTE | 2022-03-07 08:40 | NUR ---
PT. WITH LOW RG SCALE AT HIGH RISK, CONTINUE TO FOLLOW PRESSURE INJURY PREVENTION INTERVENTIONS. PT. ADMITTED WITH MOISTURE ASSOCIATED SKIN DAMAGE TO BUTTOCKS AND SACRALCOCCYX, RECOMMEND Z-GUARD BID. -POSITIONING: TURN AND REPOSITION PATIENT Q 2H OR SOONER USE PILLOWS TO KEEP BONY PROMINENCES FROM DIRECT CONTACT WITH SURFACES USE REPOSITIONING WEDGES TO PROVIDE 30-DEGREE ANGLE FOR SIDE LYING POSITIONS OFFLOADING OR FOAM DRESSING TO ALL TUBING TO PREVENT MEDICAL DEVICES RELATED PRESSURE INJURY -RE-EVALUATING AND MANAGING INCONTINENCE MONITOR SKIN CONDITION DURING POSITION CHANGE DO NOT MASSAGE REDNESS, BONY PROMINENCES FREQUENT RENAE-CARE AND PROVIDE BARRIER CREAMS PRN IF SOILING MOISTURE CONTROL BY OFFER BED MCMULLEN/URINAL /ABSORBENT PAD TO WICK AND HOLD MOISTURE KEEP SKIN DRY AND PROTECT FROM FRICTION -MANAGE FRICTION/SHEAR/MOBILITY KEEP HOB AT THE LOWEST LEVEL OF ELEVATION NO MORE THAN 30 DEGREE UNLESS OTHERWISE CONTRAINDICATED USE LIFT SHEET OR TRANSFER DEVICE TO MOVE PATIENT AND PREVENT LATERAL SHEER. PROTECT HEELS, ELBOWS BONY PROMINENCES WITH SKIN BERRIES OR FOAM DRESSING IF EXPOSED TO FRICTION OFFLOAD BILATERAL HEELS BY PLACING PILLOWS UNDER CALVES AT ALL TIMES, UNLESS OTHERWISE CONTRAINDICATED -PRESSURE REDISTRIBUTION SURFACE THERAPY FOREST ISOFLEX MATTRESS -NUTRITION: PLEASE FOLLOW RD RECOMMENDATIONS AND OFFER NUTRITION SUPPLEMENTS IF ORDERED.
[2022-03-07] MEDS: AMIKACIN IV SCH (09:00)
[2022-03-07] MEDS: DEXTROSE 5% IV SCH (09:00)
--- NOTE | 2022-03-07 10:07 | NUR ---
LATE ENTRY - CONFIRMED WITH NURSE NS INFUSION COMPLETED AT 0825 03/05/22.
--- NOTE | 2022-03-07 10:07 | NUR ---
LATE ENTRY - CONFIRMED WITH NURSE 2ND NS INFUSION COMPLETED AT 0921 03/05/22.
[2022-03-07] MEDS: ENOXAPARIN 40 MG/0.4 ML SYR SUBQ SCH (10:29)
[2022-03-07] MEDS: levETIRAcetam 500 MG TAB PO SCH (10:34)
[2022-03-07] MEDS: DOCUSATE SODIUM 100 MG GELCAP PO SCH (10:34)
[2022-03-07] MEDS: FLUDROCORTISONE 0.1 MG TAB PO SCH (10:35)
[2022-03-07] MEDS: MAGNESIUM OXIDE 400 MG TAB PO PRN (10:35)
[2022-03-07] MEDS: VANCOMYCIN 750 MG in DEXTROSE 5% 250 ML IV SCH (11:49)
[2022-03-07] MEDS: ONDANSETRON 4 MG/2 ML VIAL IVP PRN (12:36)
[2022-03-07] MEDS ORDERED: Z-GUARD PASTE TP SCH (13:00)
[2022-03-07 14:13] VITALS: BP 142/85
--- NOTE | 2022-03-07 15:58 | NUR ---
DC PLANNING PT ACCEPTED TO [facility] ROOM 21 B, RECEIVING DR. DR DOUGLAS, CALL REPORT NUMBER [phone] TRANSPORT REQUEST FORM FAXED TO [facility] [phone] FOR 530PM P/UP. NURSE STATION PHONE NUMBER PROVIDED TO [facility]. [facility] CONFORMATION FAX RECEIVED AT 0052. ENDORSED TO PT NURSE.
[2022-03-07 16:00] VITALS: BP 114/72
--- NOTE | 2022-03-07 19:04 | NUR ---
MIKE NON-EMERGENCY MEDICAL TRANSCORTIN IS HER TO [facility]NA[facility] PATIENT IN STABLE CONDITION BACK TO [facility]. REPORT GIVE TO DAVID; MOTHER INFORMED THAT PATIENT IS TRANSFER BACK TO THE SNF THAT SHE COME FROM. PATIENT AWARE THAT SHE IS GOING BACK TO THE FACILITY. PATIENT GOING WITH PICC, DOUBLE LUMEN, AT L. UPPER ARM, SUPRPUBLIC CATHETER DRAINING. WRIST BAND REMOVED
== END 2022-03-07 18:50 | DRG 861 ==
LOC: MED 06:53 → MTU 11:47 → OBSVTOIN 11:47 → MTU 22:16
PROVIDERS: ADMIT Internal Medicine; ATTEND Internal Medicine
DX: R53.1 Weakness (principal); G82.20 Paraplegia, unspecified; Z93.50 Unspecified cystostomy status; D64.9 Anemia, unspecified; G40.909 Epilepsy, unspecified, not intractable, without status epilepticus; N31.9 Neuromuscular dysfunction of bladder, unspecified; Z20.822 Contact with and (suspected) exposure to COVID-19; Z88.1 Allergy status to other antibiotic agents; Z88.8 Allergy status to other drugs, medicaments and biological substances; W34.09XA Accidental discharge from other specified firearms, initial encounter; Y93.89 Activity, other specified; Y92.89 Other specified places as the place of occurrence of the external cause; Y99.8 Other external cause status; Z87.440 Personal history of urinary (tract) infections; Z90.49 Acquired absence of other specified parts of digestive tract
CPT/HCPCS: 36415; 71045; 80048; 80053; 80150; 80202; 81001; 83605; 83735; 84439; 84443; 85025; 87040; 87081; 87086; 96374; 96375; 99285; J0278; J1650; J1885; J2270; J2405; J3370; J3475; J3480; J7060; Q0092

== ENCOUNTER 2022-03-11 16:50 | Emergency (ER) | payer OTHER ==
[~2022-03-11] VITALS: Ht 162.6 cm; Wt 59.0 kg
[~2022-03-11 16:50] MED LIST changes: -AMIK500I IV; -PRO5 PO
--- NOTE | 2022-03-11 16:53 | NUR ---
PATIENT BIBA TO BED 4.
[2022-03-11 16:58] VITALS: BP 127/75
--- NOTE | 2022-03-11 17:00 | NUR ---
46/F BIBA FROM [facility] C/O CHEST PAIN S/P SZ ACTIVITY WITNESSED BY STAFF. PT GCS 15 AT THIS TIME. DENIES TAKING ANY HOME MEDS TODAY D/T ELEVATED BP READING TODAY. NONAMBULATORY. NO ORAL TRAUMA NOTED. pmh: seizures, sepsis, uti allergy: ciprofloxacin, midodrine, ceftriaxone
[2022-03-11] MEDS ORDERED: MORPHINE SULFATE 2 MG/ML SYR IVP STA ×2 (17:21→19:59)
[2022-03-11] MEDS ORDERED: diphenhydrAMINE 50 MG/ML VIAL IVP ONE (17:25)
--- NOTE | 2022-03-11 17:37 | NUR ---
COVID AND FLU SWAB COLLECTED AND SENT TO LAB. URINE COLLECTED AND SENT TO LAB
[2022-03-11 17:57] LABS: BASOPHILS % (AUTO) 0.5 % (0.0-2.0); EOSINOPHILS # (AUTO) 0.4 K/uL (0-0.4); EOSINOPHILS % (AUTO) 4.3 % (0.0-4.0); HEMATOCRIT 32.9 % (36-48); HEMOGLOBIN 11.1 g/dL (12.0-16.0); LYMPHOCYTES # (AUTO) 2.6 K/uL (2.5-16.5); LYMPHOCYTES % (AUTO) 31.3 % (20.5-51.1); MEAN CORPUSCULAR HEMOGLOBIN 29 pg (27-31); MEAN CORPUSCULAR HGB CONC 34 g/dL (33-37); MEAN CORPUSCULAR VOLUME 85.9 fL (80-94); MONOCYTES # (AUTO) 0.5 K/uL (0.8-1.0); MONOCYTES % (AUTO) 6.2 % (1.7-9.3); NEUTROPHILS # (AUTO) 4.8 K/uL (1.8-7.7); NEUTROPHILS % (AUTO) 57.7 % (42.2-75.2); PLATELET COUNT (AUTO) 357 K/uL (140-450); RED BLOOD CELL COUNT(AUTO) 3.83 MIL/uL (4.20-5.40); RED CELL DISTRIBUTION WIDTH 13.9 % (11.6-13.7); WHITE BLOOD COUNT (AUTO) 8.3 K/uL (4.8-10.8)
[2022-03-11 18:01] LABS: APPEARANCE,URINE CLEAR (CLEAR); BILIRUBIN,URINE NEGATIVE (NEGATIVE); BLOOD, URINE 1+ (NEGATIVE); COLOR,URINE YELLOW (YELLOW); LEUKOCYTE ESTERASE ,URINE NEGATIVE (NEGATIVE); NITRITE, URINE NEGATIVE (NEGATIVE); UGLUCOSE NEGATIVE (NEGATIVE)
[2022-03-11 18:14] LABS: WBC,URINE 0-5 /HPF (0-5)
[2022-03-11 18:15] LABS: OTHER CASTS, URINE None Seen /LPF (None Seen)
[2022-03-11 18:20] LABS: ALBUMIN 3.9 g/dL (3.4-5.0); ANION GAP 10.7 (8-16); CARBON DIOXIDE 28.3 mmol/L (21-32); CREATININE 0.4 mg/dL (0.6-1.3); TOTAL BILIRUBIN 0.3 mg/dL (0.0-1.0)
[2022-03-11] MEDS ORDERED: POTASSIUM CHLORIDE 10 MEQ TABER PO ONE (19:25)
--- NOTE | 2022-03-11 19:30 | NUR ---
Patient resting in bed, A/Ox4, chest rise and fall symmetrical, no s/s of distress. Addendum: 03/11/22 at 2205 by [email or web address] Patient resting in bed, A/Ox4, chest rise and fall symmetrical, no s/s of distress, seizure precautions/pads in place.
--- NOTE | 2022-03-11 20:22 | NUR ---
Patient resting in bed, A/Ox4, chest rise and fall symmetrical, no s/s of distress. Addendum: 03/11/22 at 2205 by [email or web address] Patient resting in bed, A/Ox4, chest rise and fall symmetrical, no s/s of distress, seizure precautions/pads in place.
[2022-03-11] MEDS ORDERED: LORazepam 2 MG/ML VIAL IVP ONE (20:40)
--- NOTE | 2022-03-11 21:45 | NUR ---
Patient resting in bed, A/Ox4, chest rise and fall symmetrical, no c/o pain or s/s of distress, seizure precautions/pads in place.
--- NOTE | 2022-03-11 22:10 | NUR ---
Patient resting in bed, A/Ox4, chest rise and fall symmetrical, no c/o pain or s/s of distress, seizure precautions/pads in place.
--- NOTE | 2022-03-11 22:17 | NUR ---
Patient to be transferred back to [facility]. Is being transferred due to discharge from [facility] ER. Receiving facility has accepting physician and available space. Patient or responsible democrat has agreed to transfer and signed form. Patient belongings inventoried and will be sent with patient. Copy of nursing notes, lab reports, EKG, Physicians Orders and X-rays to be sent with patient. Report called to Laurence HENRY at receiving facility. Laurence HENRY verbalized understanding of report, no further questions. [facility] ambulance service has been called for transfer. Addendum: 03/12/22 at 0119 by [email or web address] Patient to be transferred back to [facility]. Is being transferred due to discharge from [facility]. Receiving facility has accepting physician and available space. Patient or responsible democrat has agreed to transfer and signed form. Patient belongings inventoried and will be sent with patient. Copy of nursing notes, lab reports, EKG, Physicians Orders and X-rays to be sent with patient. Report called to Laurence HENRY at receiving facility. Laurence HENRY verbalized understanding of report, no further questions. [facility] ambulance service has been called for transfer.
--- NOTE | 2022-03-11 23:20 | NUR ---
Patient resting in bed, A/Ox4, chest rise and fall symmetrical, no c/o pain or s/s of distress, seizure precautions/pads in place.
--- NOTE | 2022-03-12 01:03 | NUR ---
Patient resting in bed, A/Ox4, chest rise and fall symmetrical, no c/o pain or s/s of distress, seizure precautions/pads in place.
--- NOTE | 2022-03-12 01:15 | NUR ---
01:15 [employer] [place] [employer]ICAL ARRIVED AT BEDSIDE.
--- NOTE | 2022-03-12 01:26 | NUR ---
[employer] [place] [employer] [place] MEDICAL STAFF GIVEN REPORT, [facility] MEDICAL STAFF HAS NO QUESTIONS. PATIENT SAFELY TRANSFERRED TO [facility] FOR TRANSPORT. PATIENT, BELONGINGS, AND ALL DISCHARGE INFORMATION LEFT WITH PATIENT.
[2022-03-12 01:28] VITALS: BP 96/70
== END 2022-03-12 01:28 | disposition home or self-care (01) ==
LOC: MED 16:50
DX: R07.9 Chest pain, unspecified (principal); Z20.822 Contact with and (suspected) exposure to COVID-19; R55 Syncope and collapse; I50.20 Unspecified systolic (congestive) heart failure; Z88.5 Allergy status to narcotic agent; Z88.8 Allergy status to other drugs, medicaments and biological substances
CPT/HCPCS: 36415; 71045; 80053; 81001; 83880; 84484; 85025; 85379; 87086; 87426; 87804; 93005; 96374; 96375; 96376; 99285; J1200; J2060; J2270; Q0092

== ENCOUNTER 2022-07-16 15:45 | Emergency (ER) | payer OTHER ==
[~2022-07-16] VITALS: Ht 167.6 cm; Wt 53.1 kg
--- NOTE | 2022-07-16 15:50 | NUR ---
PT BIBA TO BED 8
[2022-07-16 16:06] VITALS: BP 109/70
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
--- NOTE | 2022-07-16 16:23 | NUR ---
BLADDER SCAN COMPLETED BY AYAD RN, 203ML RETAINED VOLUME W/INITIAL CATH IN PLACE
[2022-07-16] MEDS ORDERED: NACL 0.9% 1,000 ML IV ONE (16:25)
[2022-07-16] MEDS ORDERED: MORPHINE SULFATE 4 MG/ML SYR IVP ONE (16:35)
[2022-07-16 16:40] LABS: BASOPHILS % (AUTO) 0.3 % (0.0-2.0); EOSINOPHILS # (AUTO) 0.7 K/uL (0-0.4); EOSINOPHILS % (AUTO) 7.2 % (0.0-4.0); HEMATOCRIT 31.6 % (36-48); HEMOGLOBIN 10.6 g/dL (12.0-16.0); LYMPHOCYTES # (AUTO) 2.8 K/uL (2.5-16.5); MEAN CORPUSCULAR HEMOGLOBIN 29 pg (27-31); MEAN CORPUSCULAR HGB CONC 34 g/dL (33-37); MEAN CORPUSCULAR VOLUME 86.4 fL (80-94); MONOCYTES # (AUTO) 0.6 K/uL (0.8-1.0); MONOCYTES % (AUTO) 6.1 % (1.7-9.3); NEUTROPHILS # (AUTO) 5.3 K/uL (1.8-7.7); NEUTROPHILS % (AUTO) 56.4 % (42.2-75.2); PLATELET COUNT (AUTO) 273 K/uL (140-450); RED BLOOD CELL COUNT(AUTO) 3.65 MIL/uL (4.20-5.40); WHITE BLOOD COUNT (AUTO) 9.5 K/uL (4.8-10.8)
[2022-07-16 16:49] LABS: ANION GAP 11.3 (8-16); CARBON DIOXIDE 25.1 mmol/L (21-32); CREATININE 0.3 mg/dL (0.6-1.3); POTASSIUM 3.4 mmol/L (3.5-5.1)
[2022-07-16 17:45] LABS: BILIRUBIN,URINE NEGATIVE (NEGATIVE); BLOOD, URINE 3+ (NEGATIVE); COLOR,URINE YELLOW (YELLOW); LEUKOCYTE ESTERASE ,URINE 3+ (NEGATIVE); NITRITE, URINE POSITIVE (NEGATIVE); UGLUCOSE NEGATIVE (NEGATIVE)
[2022-07-16 17:51] LABS: APPEARANCE,URINE CLOUDY (CLEAR)
[2022-07-16] MEDS ORDERED: SULF-58 PO (19:00)
--- NOTE | 2022-07-16 19:39 | NUR ---
PT IS RESTING IN BED WITH HOB ELEVATED. RESP EVEN AND UNLABORED. PT STATES CURRENTLY HAVING 9/10 BODY PAIN. PT IS A&OX4. 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 PT HAS BEEN D/C. TRANSPORTION IS TRYING TO BE ARRANGED AT THIS TIME
--- NOTE | 2022-07-16 19:48 | NUR ---
SPOKE WITH CHARGE NURSE AT [facility] Addendum: 07/16/22 at 1949 by [email or web address] SPOKE WITH CHARGE NURSE AT [facility] ABOUT TRANSPORTING PT BACK. WILL GET BACK TO ER STAFF REGARDING ISSUE
--- NOTE | 2022-07-16 21:50 | NUR ---
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 RESP EVEN AND UNLABORED. HOB ELEVATED.
--- NOTE | 2022-07-16 22:29 | NUR ---
PT 9/10 PAIN. GEN BODY PAIN . PT REQUESTING PAIN MEDICATIONS DR HOBSON AWARE
[2022-07-16] MEDS ORDERED: MORPHINE TAB ER 15 MG TABER PO STA (22:30)
--- NOTE | 2022-07-17 00:34 | NUR ---
PT SLEEPING WITH HOB ELEVATED. 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 PT TURNED TOWARDS LEFT SIDE. RESP EVEN AND UNLABORED
[2022-07-17] MEDS ORDERED: diphenhydrAMINE 50 MG/ML VIAL IVP ONE (00:45)
[2022-07-17] MEDS ORDERED: METOCLOPRAMIDE 10 MG/2 ML INJ VIAL IVP ONE (00:45)
--- NOTE | 2022-07-17 04:59 | NUR ---
PT HAS BEEN SLEEPING. HOB ELEVATED. RESP EVEN AND UNLABORED. ON BEDSIDE MONITOR. VS WNL. PENDING TRANSPORT IN AM
[2022-07-17] MEDS ORDERED: MORPHINE SULFATE 4 MG/ML SYR IVP ONE (06:45)
--- NOTE | 2022-07-17 07:18 | NUR ---
REPORT RECEIVED FROM [facility]. ALL QUESTION ANSWERED.
[2022-07-17] MEDS ORDERED: ACETAMINOPHEN EXTRA STRENGTH 500 MG TAB PO ONE (08:35)
[2022-07-17] MEDS ORDERED: IBUPROFEN 600 MG TAB PO ONE (10:35)
--- NOTE | 2022-07-17 10:42 | NUR ---
BED SHEETS, BRIEF, GOWN CHANGED AND REPOSITIONED. COOLING MEASURES DONE.
--- NOTE | 2022-07-17 12:17 | NUR ---
PT SLEEPING IN UPRIGHT POSITION
--- NOTE | 2022-07-17 12:43 | NUR ---
12:43 TRANSPORT AT BEDSIDE.
[2022-07-17 12:51] VITALS: BP 131/74
--- NOTE | 2022-07-17 12:51 | NUR ---
Patient discharged with v/s stable. Written and verbal after care instructions given and explained. Patient alert, oriented and verbalized understanding of instructions. Ambulatory with steady gait. All questions addressed prior to discharge. ID band removed. Patient advised to follow up with PMD. Rx of BACTRIM given. Opportunity to ask questions provided and answered.
== END 2022-07-17 12:51 | disposition home or self-care (01) ==
LOC: MED 15:45
DX: N39.0 Urinary tract infection, site not specified (principal); Z86.69 Personal history of other diseases of the nervous system and sense organs; Z79.899 Other long term (current) drug therapy; Z79.2 Long term (current) use of antibiotics; Z88.8 Allergy status to other drugs, medicaments and biological substances; Z88.1 Allergy status to other antibiotic agents
CPT/HCPCS: 36415; 51702; 80048; 81001; 81025; 84703; 85025; 87086; 96361; 96374; 96375; 96376; 99285; J1200; J2270; J2765; J7030

== ENCOUNTER 2022-08-05 17:24 | Emergency (ER) | payer OTHER ==
[~2022-08-05] VITALS: Ht 162.6 cm; Wt 63.5 kg
[~2022-08-05 17:24] MED LIST changes: +SULF-58 PO
[2022-08-05 17:46] VITALS: BP 144/88
[2022-08-05] MEDS ORDERED: IBUP-2213 PO (18:00)
[2022-08-05] MEDS ORDERED: NITR100C7 PO (18:00)
[2022-08-05] MEDS ORDERED: ONDA8TAB87 PO (18:00)
[2022-08-05] MEDS ORDERED: ACET-8905 PO (18:00)
--- NOTE | 2022-08-05 18:00 | NUR ---
CHILLS RESOLVING, FEELS BETTER WITH WARM BLANKETS ON
[2022-08-05] MEDS ORDERED: MORPHINE SULFATE 4 MG/ML SYR IM ONE (18:10)
--- NOTE | 2022-08-05 19:15 | NUR ---
SPOKE WITH DAVID OF [facility], AWARE OF PT D/C AND RX OF ANTIBIOTICS. AWAITING FOR ETA OF TRANSPORT FOR RETURN TRIP
--- NOTE | 2022-08-05 22:38 | NUR ---
[facility]ORT HAS ARRIVED
[2022-08-05 22:42] VITALS: BP 144/88
--- NOTE | 2022-08-05 22:42 | NUR ---
Patient discharged with v/s stable. Written and verbal after care instructions given and explained. Patient alert, oriented and verbalized understanding of instructions. Ambulance Transport with to skilled nursing. All questions addressed prior to discharge. ID band removed. Patient advised to follow up with PMD. Rx of NORCO, MOTRIN, MACROBID given. Patient educated on indication of medication including possible reaction and side effects. Opportunity to ask questions provided and answered.
== END 2022-08-05 22:42 | disposition home or self-care (01) ==
LOC: MED 17:24
DX: N39.0 Urinary tract infection, site not specified (principal); Z88.8 Allergy status to other drugs, medicaments and biological substances; Z79.899 Other long term (current) drug therapy; Z90.49 Acquired absence of other specified parts of digestive tract
CPT/HCPCS: 51705; 81002; 81025; 96372; 99284; J2270

== ENCOUNTER 2022-10-03 04:50 | Inpatient (IN) | payer OTHER ==
[~2022-10-03] VITALS: Ht 167.6 cm; Wt 47.2 kg
[2022-10-03] VITALS (10 sets, daily range): BP systolic 127–147; BP diastolic 82–86; PULSE 82–104; RESP 14–24; TEMP 96.6–97.7; O2SAT 96–100
[~2022-10-03 04:50] MED LIST changes: +ACET-8905 PO; +IBUP-2213 PO; +NIRM1TAB PO; +NITR100C7 PO; +ONDA8TAB87 PO
[2022-10-03] MEDS ORDERED: NACL 0.9% 1,000 ML IV ONE (05:15)
[2022-10-03] MEDS ORDERED: MEROPENEM 1,000 MG in NACL 0.9% 50 ML IV ONE (05:15)
[2022-10-03] MEDS ORDERED: VANCOMYCIN 1,000 MG in DEXTROSE 5% 250 ML IV ONE (05:15)
[2022-10-03 05:36] LABS: BLOOD GAS HCO3 15.8 mmol/L (22-26); BLOOD GAS O2 SAT% 95.3 % (92.0-98.5); BLOOD GAS PCO2 30.6 mmHg (35-45); BLOOD GAS PO2 80.3 mmHg (75-100)
[2022-10-03] MEDS ORDERED: HYDROcodone/APAP 5/325 MG 1 TAB TAB PO PRN (05:45)
[2022-10-03] MEDS ORDERED: LORazepam 1 MG TAB PO PRN (05:45)
[2022-10-03] MEDS ORDERED: MAG SULF 2000 MG/WATER PREMIX 50 ML IV PRN (05:45)
[2022-10-03] MEDS ORDERED: ZOLPIDEM 5 MG TAB PO PRN (05:45)
[2022-10-03] MEDS ORDERED: VANCOMYCIN PER PHARMACY MC PRN (05:45)
[2022-10-03] MEDS ORDERED: POTASSIUM CHLORIDE 10 MEQ TABER PO PRN (05:45)
[2022-10-03] MEDS ORDERED: KCL 20 MEQ IN 100 mL PREMIX 200 ML IV PRN (05:45)
[2022-10-03] MEDS: MEROPENEM 500 MG in NACL 0.9% 50 ML IV SCH ×3 (05:45→20:30)
[2022-10-03] MEDS ORDERED: MEROPENEM 1,000 MG VIAL IV ONE (05:46)
[2022-10-03] MEDS ORDERED: VANCOMYCIN 1,000 MG VIAL ONE (05:47)
[2022-10-03] MEDS ORDERED: MORPHINE SULFATE 4 MG/ML SYR IVP ONE (05:50)
[2022-10-03 06:44] LABS: BASOPHILS % (AUTO) 0.2 % (0.0-2.0); EOSINOPHILS # (AUTO) 0.2 K/uL (0-0.4); EOSINOPHILS % (AUTO) 1.6 % (0.0-4.0); HEMATOCRIT 33.7 % (36-48); HEMOGLOBIN 11.3 g/dL (12.0-16.0); LYMPHOCYTES # (AUTO) 2.1 K/uL (2.5-16.5); LYMPHOCYTES % (AUTO) 17.6 % (20.5-51.1); MEAN CORPUSCULAR HEMOGLOBIN 30 pg (27-31); MEAN CORPUSCULAR HGB CONC 34 g/dL (33-37); MEAN CORPUSCULAR VOLUME 88.5 fL (80-94); MONOCYTES # (AUTO) 0.6 K/uL (0.8-1.0); NEUTROPHILS # (AUTO) 8.9 K/uL (1.8-7.7); NEUTROPHILS % (AUTO) 75.6 % (42.2-75.2); PLATELET COUNT (AUTO) 298 K/uL (140-450); RED BLOOD CELL COUNT(AUTO) 3.81 MIL/uL (4.20-5.40); RED CELL DISTRIBUTION WIDTH 13.9 % (11.6-13.7); WHITE BLOOD COUNT (AUTO) 11.7 K/uL (4.8-10.8)
[2022-10-03 06:55] LABS: LACTIC ACID 1.3 mmol/L (0.4-2.0)
[2022-10-03 06:56] LABS: INR 0.98 (0.8-1.2); PARTIAL THROMBOPLASTIN TIME 31.6 secs (22-35.6); PROTHROMBIN TIME 10.3 secs (10.8-13.4)
[2022-10-03 06:58] LABS: ALBUMIN 3.2 g/dL (3.4-5.0); ANION GAP 20.4 (8-16); CALCIUM 8.7 mg/dL (8.5-10.1); CARBON DIOXIDE 17.7 mmol/L (21-32); CREATININE 0.6 mg/dL (0.6-1.3); POTASSIUM 3.1 mmol/L (3.5-5.1); TOTAL BILIRUBIN 0.6 mg/dL (0.0-1.0)
[2022-10-03] MEDS ORDERED: TRAZ-343 PO (07:29)
[2022-10-03] MEDS ORDERED: ATI.5 PO (07:29)
[2022-10-03] MEDS ORDERED: TOP100 PO (07:29)
[2022-10-03] MEDS ORDERED: GABA300C PO (07:29)
[2022-10-03] MEDS ORDERED: PAX20 PO (07:29)
[2022-10-03] MEDS ORDERED: SIME80CT27 PO (07:29)
[2022-10-03] MEDS ORDERED: ZINC50TA58 PO (07:29)
[2022-10-03] MEDS ORDERED: ACET-5636 PO (07:29)
[2022-10-03] MEDS ORDERED: AZITHROMYCIN 500 MG INJ VIAL IV ONE ×2 (07:41→09:34)
[2022-10-03] MEDS: MORPHINE SULFATE 4 MG/ML SYR IVP PRN ×4 (08:29→22:09)
[2022-10-03] MEDS: ALBUTEROL SULFATE/IPRATROPIU 3 ML SOL IH PRN ×2 (09:26→17:33)
[2022-10-03 09:29] LABS: APPEARANCE,URINE CLEAR (CLEAR); BILIRUBIN,URINE NEGATIVE (NEGATIVE); BLOOD, URINE 3+ (NEGATIVE); COLOR,URINE YELLOW (YELLOW); LEUKOCYTE ESTERASE ,URINE TRACE (NEGATIVE); NITRITE, URINE NEGATIVE (NEGATIVE); PH,URINE 5.5 (5.0-9.0); PROTEIN,URINE 3+ (NEGATIVE); UGLUCOSE NEGATIVE (NEGATIVE)
[2022-10-03] MEDS: AZITHROMYCIN 500 MG in DEXTROSE 5% 250 ML IV SCH (09:35)
[2022-10-03] MEDS: ENOXAPARIN 40 MG/0.4 ML SYR SUBQ SCH (09:43)
[2022-10-03 09:44] LABS: BACTERIA,URINE 1+ /HPF (None Seen); RBC,URINE >100 /HPF (0-5); SQUAMOUS EPITHELIAL CELL,UR 0-3 (FEW) /LPF (0-3 (FEW)); WBC,URINE 0-5 /HPF (0-5)
[2022-10-03] MEDS: ONDANSETRON 4 MG/2 ML VIAL IVP PRN (12:21)
[2022-10-03] MEDS: VANCOMYCIN 750 MG in DEXTROSE 5% 250 ML IV SCH (18:07)
[2022-10-04] VITALS (7 sets, daily range): BP systolic 112–137; BP diastolic 69–93; PULSE 88–111; RESP 18–25; TEMP 98.8–99.3; O2SAT 95–98
[2022-10-04] MEDS: DEXAMETHASONE 4 MG/ML VIAL IVP SCH (02:22)
[2022-10-04] MEDS: ACETAMINOPHEN 325 MG TAB PO PRN ×2 (04:49→17:29)
[2022-10-04] MEDS: MEROPENEM 500 MG in NACL 0.9% 50 ML IV SCH (05:00)
[2022-10-04] MEDS: AZITHROMYCIN 500 MG in DEXTROSE 5% 250 ML IV SCH (05:20)
[2022-10-04] MEDS: VANCOMYCIN 750 MG in DEXTROSE 5% 250 ML IV SCH ×2 (07:00→19:00)
[2022-10-04 08:01] LABS: BASOPHILS % (AUTO) 0.1 % (0.0-2.0); EOSINOPHILS # (AUTO) 0.2 K/uL (0-0.4); EOSINOPHILS % (AUTO) 2.4 % (0.0-4.0); HEMATOCRIT 32.5 % (36-48); HEMOGLOBIN 10.9 g/dL (12.0-16.0); LYMPHOCYTES # (AUTO) 1.5 K/uL (2.5-16.5); LYMPHOCYTES % (AUTO) 17.7 % (20.5-51.1); MEAN CORPUSCULAR HEMOGLOBIN 29 pg (27-31); MEAN CORPUSCULAR HGB CONC 34 g/dL (33-37); MEAN CORPUSCULAR VOLUME 87.6 fL (80-94); MONOCYTES # (AUTO) 0.6 K/uL (0.8-1.0); NEUTROPHILS # (AUTO) 6.1 K/uL (1.8-7.7); NEUTROPHILS % (AUTO) 72.8 % (42.2-75.2); PLATELET COUNT (AUTO) 422 K/uL (140-450); RED BLOOD CELL COUNT(AUTO) 3.71 MIL/uL (4.20-5.40); RED CELL DISTRIBUTION WIDTH 13.7 % (11.6-13.7); WHITE BLOOD COUNT (AUTO) 8.4 K/uL (4.8-10.8)
[2022-10-04] MEDS: ALBUTEROL SULFATE/IPRATROPIU 3 ML SOL IH PRN (08:05)
[2022-10-04 08:19] LABS: ANION GAP 18.7 (8-16); CALCIUM 8.2 mg/dL (8.5-10.1); CARBON DIOXIDE 19.3 mmol/L (21-32); CREATININE 0.5 mg/dL (0.6-1.3); TOTAL BILIRUBIN 0.5 mg/dL (0.0-1.0); TOTAL PROTEIN, SERUM 7.8 g/dL (6.4-8.2)
[2022-10-04] MEDS ORDERED: remdesivir CLINICAL MONITORING 1 EA MISC MC PRN (10:15)
[2022-10-04] MEDS: ENOXAPARIN 40 MG/0.4 ML SYR SUBQ SCH (10:20)
[2022-10-04] MEDS ORDERED: REMDESIVIR. 200 MG in NACL 0.9% 100 ML IV SCH (13:00)
[2022-10-04] MEDS: MORPHINE SULFATE 4 MG/ML SYR IVP PRN ×2 (15:13→19:48)
[2022-10-04] MEDS: ONDANSETRON 4 MG/2 ML VIAL IVP PRN (17:39)
[2022-10-05 04:00] VITALS: BP 137/93; PULSE 88; RESP 20; TEMP 98.8; O2SAT 96
[2022-10-05] MEDS: MORPHINE SULFATE 4 MG/ML SYR IVP PRN ×6 (05:17→23:20)
[2022-10-05] MEDS: MEROPENEM 500 MG in NACL 0.9% 50 ML IV SCH ×4 (05:22→21:44)
[2022-10-05] MEDS: AZITHROMYCIN 500 MG in DEXTROSE 5% 250 ML IV SCH (05:45)
[2022-10-05] MEDS: VANCOMYCIN 750 MG in DEXTROSE 5% 250 ML IV SCH (06:09)
[2022-10-05 08:00] VITALS: BP 163/119; PULSE 63; RESP 19; TEMP 97.9; O2SAT 94
[2022-10-05] MEDS: DEXAMETHASONE 4 MG/ML VIAL IVP SCH (10:27)
[2022-10-05] MEDS: ENOXAPARIN 40 MG/0.4 ML SYR SUBQ SCH (10:30)
[2022-10-05] MEDS: remdesivir COMMUNICATION ORDER 1 EA MISC MC SCH (13:00)
[2022-10-05] MEDS: REMDESIVIR. 100 MG in NACL 0.9% 100 ML IV SCH (13:23)
[2022-10-05] MEDS: ONDANSETRON 4 MG/2 ML VIAL IVP PRN (13:31)
[2022-10-05 19:11] LABS: BASOPHILS # (AUTO) 0.1 K/uL (0.00-0.22); BASOPHILS % (AUTO) 0.8 % (0.0-2.0); EOSINOPHILS % (AUTO) 0.1 % (0.0-4.0); HEMATOCRIT 32.2 % (36-48); HEMOGLOBIN 10.9 g/dL (12.0-16.0); LYMPHOCYTES # (AUTO) 1.2 K/uL (2.5-16.5); LYMPHOCYTES % (AUTO) 17.3 % (20.5-51.1); MEAN CORPUSCULAR HEMOGLOBIN 30 pg (27-31); MEAN CORPUSCULAR HGB CONC 34 g/dL (33-37); MEAN CORPUSCULAR VOLUME 87.5 fL (80-94); MONOCYTES # (AUTO) 0.1 K/uL (0.8-1.0); NEUTROPHILS # (AUTO) 5.6 K/uL (1.8-7.7); NEUTROPHILS % (AUTO) 79.8 % (42.2-75.2); PLATELET COUNT (AUTO) 345 K/uL (140-450); RED BLOOD CELL COUNT(AUTO) 3.68 MIL/uL (4.20-5.40); RED CELL DISTRIBUTION WIDTH 13.7 % (11.6-13.7)
[2022-10-05 19:41] VITALS: O2SAT 94
[2022-10-05 20:00] VITALS: BP 142/84; PULSE 80; RESP 18; RESP 20; TEMP 98.3; TEMP 98.6; O2SAT 96
[2022-10-05 20:40] LABS: ANION GAP 18.3 (8-16); CALCIUM 8.3 mg/dL (8.5-10.1); CARBON DIOXIDE 21.1 mmol/L (21-32); CREATININE 0.5 mg/dL (0.6-1.3); POTASSIUM 3.4 mmol/L (3.5-5.1); TOTAL BILIRUBIN 0.3 mg/dL (0.0-1.0); TOTAL PROTEIN, SERUM 7.5 g/dL (6.4-8.2)
[2022-10-06] VITALS (7 sets, daily range): BP systolic 128–145; BP diastolic 79–80; PULSE 75–113; RESP 16–20; TEMP 97.3–98.8; O2SAT 95–100
[2022-10-06] MEDS: ALBUTEROL SULFATE/IPRATROPIU 3 ML SOL IH PRN (05:04)
[2022-10-06] MEDS: MEROPENEM 500 MG in NACL 0.9% 50 ML IV SCH (05:37)
[2022-10-06] MEDS: ONDANSETRON 4 MG/2 ML VIAL IVP PRN (05:38)
[2022-10-06] MEDS: MORPHINE SULFATE 4 MG/ML SYR IVP PRN ×2 (06:00→13:27)
[2022-10-06] MEDS: AZITHROMYCIN 500 MG in DEXTROSE 5% 250 ML IV SCH (06:01)
[2022-10-06] MEDS: DEXAMETHASONE 4 MG/ML VIAL IVP SCH (09:15)
[2022-10-06] MEDS: ENOXAPARIN 40 MG/0.4 ML SYR SUBQ SCH (09:28)
[2022-10-06] MEDS ORDERED: AMOX-1230 PO (09:58)
[2022-10-06] MEDS ORDERED: AMOXIL/CLAVULANATE 875/125 MG 1 TAB PO SCH (10:00)
[2022-10-06] MEDS ORDERED: DEC4 PO (10:00)
[2022-10-06] MEDS ORDERED: APIX2.5 PO (10:00)
[2022-10-06] MEDS: REMDESIVIR. 100 MG in NACL 0.9% 100 ML IV SCH (13:26)
[2022-10-06] MEDS: remdesivir COMMUNICATION ORDER 1 EA MISC MC SCH (13:36)
== END 2022-10-06 15:28 | DRG 720 ==
LOC: MED 04:50 → MTU 05:50
PROVIDERS: ADMIT Hospitalist; ATTEND Hospitalist
PROC: XW033E5 Introduction of Remdesivir Anti-infective into Peripheral Vein, Percutaneous Approach, New Technology Group 5 (ICD-10-PCS; principal; 2022-10-04)
DX: A41.9 Sepsis, unspecified organism (principal); J96.91 Respiratory failure, unspecified with hypoxia; J12.82 Pneumonia due to coronavirus disease 2019; E44.0 Moderate protein-calorie malnutrition; E87.20 Acidosis, unspecified; U07.1 COVID-19; J15.9 Unspecified bacterial pneumonia; G82.20 Paraplegia, unspecified; N39.0 Urinary tract infection, site not specified; E87.6 Hypokalemia; Z88.1 Allergy status to other antibiotic agents; Z90.49 Acquired absence of other specified parts of digestive tract; Z68.1 Body mass index [BMI] 19.9 or less, adult
CPT/HCPCS: 36415; 36600; 71045; 80053; 80202; 81001; 82803; 83605; 83880; 85025; 85610; 85730; 87040; 87081; 87086; 87635-QW; 93005; 94640; 96365; 96366; 96367; 96375; 99285; J0456; J1100; J1650; J2185; J2270; J2405; J3370; J3480; J7060; Q0092

== ENCOUNTER 2023-06-03 16:26 | Emergency (ER) | payer OTHER ==
[~2023-06-03] VITALS: Ht 167.6 cm; Wt 59.0 kg
[~2023-06-03 16:26] MED LIST changes: +ACET-5636 PO; +AMOX-1230 PO; +APIX2.5 PO; +ATI.5 PO; -BISA-218 RC; +BISA-279 RC; +DEC4 PO; +GABA300C PO; +LACT1CAP67 PO; -LACT500C2 PO; +PAX20 PO; +SIME80CT27 PO; +TOP100 PO; +ZINC50TA58 PO
[2023-06-03 16:38] VITALS: BP 105/75; PULSE 64; RESP 18; TEMP 98.6; O2SAT 98
[2023-06-03 18:31] LABS: APPEARANCE,URINE CLEAR (CLEAR); BILIRUBIN,URINE NEGATIVE (NEGATIVE); BLOOD, URINE 3+ (NEGATIVE); COLOR,URINE YELLOW (YELLOW); LEUKOCYTE ESTERASE ,URINE 3+ (NEGATIVE); NITRITE, URINE POSITIVE (NEGATIVE); PH,URINE 8.5 (5.0-9.0); PROTEIN,URINE 1+ (NEGATIVE); UGLUCOSE NEGATIVE (NEGATIVE); UROBILINOGEN,URINE 0.2 EU/dL (0.2 - 1)
[2023-06-03 18:54] LABS: BACTERIA,URINE >30 (MANY) /HPF (None Seen); CALCIUM OXALATE CRYSTALS,UR None Seen /HPF (None Seen); CYSTINE CRYSTALS,URINE None Seen /HPF (None Seen); MUCUS,URINE None Seen /LPF (None Seen); SQUAMOUS EPITHELIAL CELL,UR 4-10 (MOD) /LPF (0-3 (FEW)); TRICHOMONAS,URINE None Seen /HPF (None Seen); TRIPLE PHOSPHATE CRYSTAL,UR 0-10 /HPF (None Seen); WHITE BLOOD CELL CASTS,URINE None Seen /LPF (None Seen); YEAST,URINE None Seen /HPF (None Seen)
[2023-06-03] MEDS: ONDANSETRON 4 MG/2 ML VIAL IVP ONE (19:00)
[2023-06-03 19:02] LABS: BASOPHILS # (AUTO) 0.1 K/uL (0.00-0.22); BASOPHILS % (AUTO) 0.7 % (0.0-2.0); EOSINOPHILS # (AUTO) 0.4 K/uL (0-0.4); EOSINOPHILS % (AUTO) 5.9 % (0.0-4.0); HEMATOCRIT 34.9 % (36-48); HEMOGLOBIN 11.9 g/dL (12.0-16.0); LYMPHOCYTES # (AUTO) 2.5 K/uL (2.5-16.5); LYMPHOCYTES % (AUTO) 33.5 % (20.5-51.1); MEAN CORPUSCULAR HEMOGLOBIN 30 pg (27-31); MEAN CORPUSCULAR HGB CONC 34 g/dL (33-37); MEAN CORPUSCULAR VOLUME 87.4 fL (80-94); MONOCYTES # (AUTO) 0.5 K/uL (0.8-1.0); MONOCYTES % (AUTO) 6.8 % (1.7-9.3); NEUTROPHILS % (AUTO) 53.1 % (42.2-75.2); PLATELET COUNT (AUTO) 305 K/uL (140-450); RED BLOOD CELL COUNT(AUTO) 3.99 MIL/uL (4.20-5.40); RED CELL DISTRIBUTION WIDTH 13.8 % (11.6-13.7); WHITE BLOOD COUNT (AUTO) 7.5 K/uL (4.8-10.8)
[2023-06-03 19:11] LABS: ANION GAP 13.5 (8-16); CALCIUM 8.4 mg/dL (8.5-10.1); CARBON DIOXIDE 27.2 mmol/L (21-32); CREATININE 0.4 mg/dL (0.6-1.3); POTASSIUM 3.7 mmol/L (3.5-5.1)
[2023-06-03 19:23] LABS: ALBUMIN 3.3 g/dL (3.4-5.0); TOTAL BILIRUBIN 0.1 mg/dL (0.0-1.0); TOTAL PROTEIN, SERUM 6.9 g/dL (6.4-8.2)
[2023-06-03] MEDS: KETOROLAC 30 MG/ML VIAL IVP ONE (19:23)
[2023-06-03] MEDS: MORPHINE SULFATE 4 MG/ML SYR IVP ONE (19:24)
[2023-06-03] MEDS: diphenhydrAMINE 50 MG/ML VIAL IVP ONE (20:12)
[2023-06-03] MEDS ORDERED: NITR100C7 PO (20:41)
[2023-06-04] MEDS ORDERED: LORazepam 2 MG/ML VIAL ONE (00:35)
[2023-06-04] MEDS: LORazepam 2 MG/ML VIAL IVP ONE (00:39)
[2023-06-04] MEDS: MORPHINE SULFATE 4 MG/ML SYR IM ONE (09:40)
[2023-06-04 10:47] VITALS: BP 132/77; PULSE 72; RESP 16; TEMP 98.3; O2SAT 98
[2023-06-07] MEDS ORDERED: VIB100 PO (11:41)
== END 2023-06-04 10:47 | disposition home or self-care (01) ==
LOC: MED 16:26
DX: N39.0 Urinary tract infection, site not specified (principal); T83.098A Other mechanical complication of other urinary catheter, initial encounter; Z79.899 Other long term (current) drug therapy
CPT/HCPCS: 36415; 74176; 80048; 80076; 81001; 83690; 85025; 87086; 87186; 96372; 96374; 96375; 99285; J1200; J1885; J2060; J2270; J2405

== ENCOUNTER 2023-06-12 20:36 | Inpatient (IN) | payer OTHER ==
[~2023-06-12] VITALS: Ht 162.6 cm; Wt 58.1 kg
[~2023-06-12 20:36] MED LIST changes: +VIB100 PO
[2023-06-12 20:43] VITALS: BP 140/92; PULSE 78; RESP 18; TEMP 97.4; O2SAT 97
[2023-06-12 21:29] VITALS: O2SAT 98
[2023-06-12] MEDS: MORPHINE SULFATE 4 MG/ML SYR IVP ONE ×2 (21:30→22:53)
[2023-06-12 21:31] LABS: BASOPHILS % (AUTO) 0.5 % (0.0-2.0); EOSINOPHILS # (AUTO) 0.5 K/uL (0-0.4); EOSINOPHILS % (AUTO) 6.3 % (0.0-4.0); HEMATOCRIT 33.4 % (36-48); HEMOGLOBIN 11.2 g/dL (12.0-16.0); LYMPHOCYTES # (AUTO) 3.1 K/uL (2.5-16.5); LYMPHOCYTES % (AUTO) 39.9 % (20.5-51.1); MEAN CORPUSCULAR HEMOGLOBIN 30 pg (27-31); MEAN CORPUSCULAR HGB CONC 34 g/dL (33-37); MEAN CORPUSCULAR VOLUME 87.9 fL (80-94); MONOCYTES # (AUTO) 0.5 K/uL (0.8-1.0); MONOCYTES % (AUTO) 6.5 % (1.7-9.3); NEUTROPHILS # (AUTO) 3.7 K/uL (1.8-7.7); NEUTROPHILS % (AUTO) 46.8 % (42.2-75.2); PLATELET COUNT (AUTO) 291 K/uL (140-450); RED CELL DISTRIBUTION WIDTH 13.5 % (11.6-13.7); WHITE BLOOD COUNT (AUTO) 7.9 K/uL (4.8-10.8)
[2023-06-12] MEDS: ONDANSETRON 4 MG/2 ML VIAL IVP ONE (21:32)
[2023-06-12] MEDS: NACL 0.9% 1,000 ML IV ONE (21:33)
[2023-06-12 21:50] LABS: ANION GAP 12.2 (8-16); CALCIUM 8.3 mg/dL (8.5-10.1); CARBON DIOXIDE 27.3 mmol/L (21-32); CREATININE 0.5 mg/dL (0.6-1.3); POTASSIUM 3.5 mmol/L (3.5-5.1)
[2023-06-12 21:56] LABS: ALBUMIN 3.1 g/dL (3.4-5.0); BILIRUBIN,DIRECT 0.1 mg/dL (0.0-0.3); TOTAL BILIRUBIN 0.2 mg/dL (0.0-1.0); TOTAL PROTEIN, SERUM 6.6 g/dL (6.4-8.2)
[2023-06-12 21:59] LABS: LACTIC ACID 0.7 mmol/L (0.4-2.0)
[2023-06-12] MEDS: LORazepam 0.5 MG TAB PO ONE (22:00)
[2023-06-12 22:02] LABS: BILIRUBIN,URINE 1+ (NEGATIVE); BLOOD, URINE 3+ (NEGATIVE); LEUKOCYTE ESTERASE ,URINE 3+ (NEGATIVE); NITRITE, URINE POSITIVE (NEGATIVE); PH,URINE 7.5 (5.0-9.0); PROTEIN,URINE 1+ (NEGATIVE); UGLUCOSE NEGATIVE (NEGATIVE); UROBILINOGEN,URINE 0.2 EU/dL (0.2 - 1)
[2023-06-12 22:05] VITALS: O2SAT 98
[2023-06-12 22:05] LABS: APPEARANCE,URINE SLIGHTLY CLOUDY (CLEAR); COLOR,URINE RED (YELLOW)
[2023-06-12 22:08] LABS: ICTOTEST POSITIVE (NEGATIVE)
[2023-06-12 22:09] LABS: BACTERIA,URINE 3+ /HPF (None Seen); MUCUS,URINE None Seen /LPF (None Seen); RBC,URINE 20-50 /HPF (0-5); SQUAMOUS EPITHELIAL CELL,UR 4-10 (MOD) /LPF (0-3 (FEW)); WBC,URINE 20-60 /HPF (0-5)
[2023-06-12] MEDS: diphenhydrAMINE 50 MG/ML VIAL IVP ONE (22:52)
[2023-06-13] VITALS (7 sets, daily range): BP systolic 106–142; BP diastolic 51–86; PULSE 70–96; RESP 16–18; TEMP 97.4–98.8; O2SAT 95–98
[2023-06-13] MEDS ORDERED: MEROPENEM 1,000 MG VIAL IV ONE (01:26)
[2023-06-13] MEDS: MEROPENEM 1,000 MG in NACL 0.9% 50 ML IV ONE (01:41)
[2023-06-13] MEDS ORDERED: HYDROcodone/APAP 5/325 MG 1 TAB TAB PO PRN (02:30)
[2023-06-13] MEDS ORDERED: KCL 20 MEQ IN 100 mL PREMIX 200 ML IV PRN (02:30)
[2023-06-13] MEDS ORDERED: POTASSIUM CHLORIDE 10 MEQ TABER PO PRN (02:30)
[2023-06-13] MEDS ORDERED: MAG SULF 2000 MG/WATER PREMIX 50 ML IV PRN (02:30)
[2023-06-13] MEDS ORDERED: ACETAMINOPHEN 325 MG TAB PO PRN (02:30)
[2023-06-13] MEDS ORDERED: MAGNESIUM OXIDE 400 MG TAB PO PRN (02:30)
[2023-06-13] MEDS: MORPHINE SULFATE 4 MG/ML SYR IVP PRN (02:42)
[2023-06-13] MEDS: NACL 0.9% 1,000 ML IV SCH (02:45)
[2023-06-13] MEDS: MEROPENEM 1,000 MG VIAL IV ONE (05:18)
[2023-06-13] MEDS: MEROPENEM 1,000 MG in NACL 0.9% 50 ML IV SCH (05:18)
[2023-06-13] MEDS: DOCUSATE SODIUM 100 MG GELCAP PO SCH (08:10)
[2023-06-13] MEDS: diphenhydrAMINE 50 MG/ML VIAL IVP PRN (13:24)
[2023-06-13] MEDS: ONDANSETRON 4 MG/2 ML VIAL IVP PRN (20:14)
[2023-06-13] MEDS: MEDS-TO-BEDS MC SCH (20:16)
[2023-06-14 04:00] VITALS: BP 109/76; PULSE 84; RESP 18; TEMP 97.6; O2SAT 97
[2023-06-14 06:21] LABS: BASOPHILS % (AUTO) 0.2 % (0.0-2.0); EOSINOPHILS % (AUTO) 0.2 % (0.0-4.0); HEMATOCRIT 35.9 % (36-48); HEMOGLOBIN 12.3 g/dL (12.0-16.0); LYMPHOCYTES # (AUTO) 1.2 K/uL (2.5-16.5); LYMPHOCYTES % (AUTO) 12.5 % (20.5-51.1); MEAN CORPUSCULAR HEMOGLOBIN 30 pg (27-31); MEAN CORPUSCULAR HGB CONC 34 g/dL (33-37); MEAN CORPUSCULAR VOLUME 87.2 fL (80-94); MONOCYTES # (AUTO) 0.3 K/uL (0.8-1.0); NEUTROPHILS # (AUTO) 8.3 K/uL (1.8-7.7); NEUTROPHILS % (AUTO) 84.1 % (42.2-75.2); PLATELET COUNT (AUTO) 282 K/uL (140-450); RED BLOOD CELL COUNT(AUTO) 4.12 MIL/uL (4.20-5.40); RED CELL DISTRIBUTION WIDTH 13.8 % (11.6-13.7); WHITE BLOOD COUNT (AUTO) 9.8 K/uL (4.8-10.8)
[2023-06-14 06:55] LABS: ALBUMIN 2.8 g/dL (3.4-5.0); CALCIUM 8.3 mg/dL (8.5-10.1); CARBON DIOXIDE 27.8 mmol/L (21-32); CREATININE 0.5 mg/dL (0.6-1.3); MAGNESIUM 1.8 mg/dL (1.8-2.4); POTASSIUM 3.8 mmol/L (3.5-5.1); TOTAL BILIRUBIN 0.2 mg/dL (0.0-1.0); TOTAL PROTEIN, SERUM 6.2 g/dL (6.4-8.2)
[2023-06-14 08:00] VITALS: BP 100/60; PULSE 84; RESP 16; RESP 17; TEMP 97.7; O2SAT 96; O2SAT 97
[2023-06-14 12:00] VITALS: BP 102/60; PULSE 74; RESP 16; TEMP 98.8; O2SAT 97
[2023-06-14] MEDS: IBUPROFEN 800 MG TAB PO PRN (13:42)
[2023-06-14 16:00] VITALS: BP 127/85; PULSE 75; RESP 18; TEMP 98.5; O2SAT 97
[2023-06-14 20:00] VITALS: BP 141/86; PULSE 81; RESP 16; RESP 18; TEMP 97.5; O2SAT 97
[2023-06-15] MEDS: LORazepam 0.5 MG TAB PO PRN (01:51)
[2023-06-15 04:00] VITALS: BP 144/87; PULSE 72; RESP 18; TEMP 97.4; O2SAT 97
[2023-06-15 06:26] LABS: BASOPHILS % (AUTO) 0.4 % (0.0-2.0); EOSINOPHILS # (AUTO) 0.3 K/uL (0-0.4); EOSINOPHILS % (AUTO) 4.2 % (0.0-4.0); HEMATOCRIT 35.7 % (36-48); MEAN CORPUSCULAR HEMOGLOBIN 29 pg (27-31); MEAN CORPUSCULAR HGB CONC 34 g/dL (33-37); MEAN CORPUSCULAR VOLUME 86.9 fL (80-94); MONOCYTES # (AUTO) 0.4 K/uL (0.8-1.0); MONOCYTES % (AUTO) 7.1 % (1.7-9.3); NEUTROPHILS # (AUTO) 3.3 K/uL (1.8-7.7); NEUTROPHILS % (AUTO) 55.3 % (42.2-75.2); PLATELET COUNT (AUTO) 295 K/uL (140-450)
[2023-06-15 06:50] LABS: ALBUMIN 3.1 g/dL (3.4-5.0); CALCIUM 8.7 mg/dL (8.5-10.1); CARBON DIOXIDE 27.7 mmol/L (21-32); CREATININE 0.4 mg/dL (0.6-1.3); MAGNESIUM 1.9 mg/dL (1.8-2.4); POTASSIUM 3.7 mmol/L (3.5-5.1); TOTAL BILIRUBIN 0.3 mg/dL (0.0-1.0); TOTAL PROTEIN, SERUM 6.5 g/dL (6.4-8.2)
[2023-06-15 08:00] VITALS: BP 143/85; PULSE 72; PULSE 78; RESP 16; RESP 18; TEMP 97.3; TEMP 98.1; O2SAT 97; O2SAT 98
[2023-06-15] MEDS: METOCLOPRAMIDE 10 MG/2 ML INJ VIAL IVP PRN (14:06)
[2023-06-15 16:00] VITALS: BP 112/73; PULSE 97; RESP 18; TEMP 97.2; O2SAT 100
[2023-06-15] MEDS ORDERED: ERTA1VIA2 IV (19:32)
[2023-06-15 19:35] VITALS: BP 112/73; PULSE 97; RESP 18; TEMP 97.2
[2023-06-15 20:00] VITALS: BP 135/86; PULSE 78; PULSE 97; RESP 16; TEMP 97.2; O2SAT 97
[2023-06-16 04:00] VITALS: BP 145/92; PULSE 88; RESP 18; TEMP 97.4; O2SAT 97
[2023-06-16 06:21] LABS: BASOPHILS % (AUTO) 0.4 % (0.0-2.0); EOSINOPHILS # (AUTO) 0.3 K/uL (0-0.4); EOSINOPHILS % (AUTO) 3.4 % (0.0-4.0); HEMATOCRIT 32.7 % (36-48); HEMOGLOBIN 11.3 g/dL (12.0-16.0); LYMPHOCYTES % (AUTO) 26.3 % (20.5-51.1); MEAN CORPUSCULAR HEMOGLOBIN 30 pg (27-31); MEAN CORPUSCULAR HGB CONC 35 g/dL (33-37); MEAN CORPUSCULAR VOLUME 86.6 fL (80-94); MONOCYTES # (AUTO) 0.5 K/uL (0.8-1.0); MONOCYTES % (AUTO) 6.9 % (1.7-9.3); NEUTROPHILS # (AUTO) 4.9 K/uL (1.8-7.7); PLATELET COUNT (AUTO) 287 K/uL (140-450); RED BLOOD CELL COUNT(AUTO) 3.78 MIL/uL (4.20-5.40); RED CELL DISTRIBUTION WIDTH 13.8 % (11.6-13.7); WHITE BLOOD COUNT (AUTO) 7.7 K/uL (4.8-10.8)
[2023-06-16 06:41] LABS: CALCIUM 8.5 mg/dL (8.5-10.1); CREATININE 0.4 mg/dL (0.6-1.3); POTASSIUM 3.3 mmol/L (3.5-5.1); TOTAL BILIRUBIN 0.3 mg/dL (0.0-1.0); TOTAL PROTEIN, SERUM 6.3 g/dL (6.4-8.2)
[2023-06-16 06:51] LABS: ANION GAP 12.9 (8-16); CARBON DIOXIDE 27.4 mmol/L (21-32)
== END 2023-06-16 09:50 | DRG 466 ==
LOC: MED 20:36 → MTU 06-13 02:28
PROVIDERS: ADMIT Hospitalist; ATTEND Hospitalist
DX: T83.518A Infection and inflammatory reaction due to other urinary catheter, initial encounter (principal); G82.50 Quadriplegia, unspecified; E44.0 Moderate protein-calorie malnutrition; N39.0 Urinary tract infection, site not specified; E27.1 Primary adrenocortical insufficiency; R56.9 Unspecified convulsions; D64.9 Anemia, unspecified; F32.9 Major depressive disorder, single episode, unspecified; Z88.1 Allergy status to other antibiotic agents; Z88.8 Allergy status to other drugs, medicaments and biological substances; Z79.899 Other long term (current) drug therapy; Z79.891 Long term (current) use of opiate analgesic; T83.098A Other mechanical complication of other urinary catheter, initial encounter; Z68.22 Body mass index [BMI] 22.0-22.9, adult
CPT/HCPCS: 36415; 80048; 80053; 80076; 81001; 83605; 83690; 83735; 85025; 87040; 87081; 87086; 87186; 96374; 96375; 99285; J1200; J1644; J2185; J2270; J2405; J2765; Q0163